=== PATIENT | male | born 1980 | race American Indian/Alaskan Native ===

== ENCOUNTER 2016-08-16 01:55 | Emergency (ER) | payer MEDICAID ==
[~2016-08-16] VITALS: Ht 188 cm; Wt 109.2 kg
[~2016-08-16 01:55] MED LIST: ALBU8.5H5 INH; ASPI-515 PO; GLIM4TAB2 PO; GLYB2.5T2 PO; LISI5TAB7 PO; LORA0.5T PO; METF500T PO; ZOLP10TA PO
[2016-08-16 02:19] LABS: DAU SCREEN DISCLAIMER
[2016-08-16 02:47] LABS: BLOOD UREA NITROGEN 7 mg/dL (7-18)
[2016-08-16 02:51] LABS: ASPARTATE AMINO TRANSFERASE 41 U/L (15-37)
[2016-08-16 02:55] LABS: ACETAMINOPHEN < 2 mcg/mL (10-30)
[2016-08-16] MEDS ORDERED: SODIUM CHLORIDE 0.9% 1,000ML IVBOLUS ONE ×2 (03:30)
[2016-08-16] MEDS ORDERED: INSULIN REGULAR 100 UNITS/ML, 3ML VIAL IVPush ONE (03:30)
[2016-08-16] MEDS ORDERED: INSULIN SINGLE DOSE, ER SQ-INSULIN ONE ×2 (04:08→04:10)
[2016-08-16 14:11] VITALS: BP 127/77
== END 2016-08-16 14:15 | disposition home or self-care (01) ==
LOC: ED 02:22
DX: F32.9 Major depressive disorder, single episode, unspecified (principal); F10.120 Alcohol abuse with intoxication, uncomplicated; J45.909 Unspecified asthma, uncomplicated; E11.65 Type 2 diabetes mellitus with hyperglycemia; E78.5 Hyperlipidemia, unspecified; I10 Essential (primary) hypertension; Z79.4 Long term (current) use of insulin; Z79.899 Other long term (current) drug therapy
CPT/HCPCS: 36415; 80047; 80053; 80307; 80329; 81001; 82962; 85025; 96361; 96374; 99284; J7030; G0480

== ENCOUNTER 2017-03-08 18:12 | Emergency (ER) | payer MEDICAID ==
[~2017-03-08] VITALS: Ht 188 cm; Wt 85.0 kg
[~2017-03-08 18:12] MED LIST changes: +ALBU2.5V11 NEB; +HYDR25CA PO; +METF500T4 PO; +PREG50CA PO
[2017-03-08 18:26] VITALS: BP 136/86
== END 2017-03-08 18:43 | disposition left against medical advice (07) ==
LOC: ED 18:14
DX: F10.129 Alcohol abuse with intoxication, unspecified (principal); Z53.21 Procedure and treatment not carried out due to patient leaving prior to being seen by health care provider

== ENCOUNTER 2017-03-11 17:26 | Emergency (ER) | payer MEDICAID ==
[~2017-03-11] VITALS: Ht 185.4 cm; Wt 115.0 kg
[2017-03-11 17:29] VITALS: BP 138/92
[2017-03-11] MEDS ORDERED: ALPR-475 PO (17:39)
[2017-03-11] MEDS ORDERED: INSU100V8 SQ (17:39)
[2017-03-11] MEDS ORDERED: GLIM2TAB2 PO (17:39)
[2017-03-11 17:48] LABS: HEMATOCRIT 52.6 % (39.2-51.8); HEMOGLOBIN 17.8 g/dL (13.7-18.0); WHITE BLOOD COUNT 4.7 x10^3/uL (3.4-10)
[2017-03-11 18:00] LABS: BLOOD UREA NITROGEN 6 mg/dL (7-18)
[2017-03-11 18:02] LABS: ACETAMINOPHEN < 2 mcg/mL (10-30)
== END 2017-03-11 18:15 | disposition left against medical advice (07) ==
LOC: ED 18:00
DX: F10.220 Alcohol dependence with intoxication, uncomplicated (principal); I10 Essential (primary) hypertension; E11.9 Type 2 diabetes mellitus without complications; Y90.9 Presence of alcohol in blood, level not specified; Z79.899 Other long term (current) drug therapy
CPT/HCPCS: 36415; 80048; 80307; 80329; 82040; 85025; 99284; G0480

== ENCOUNTER 2017-03-26 16:06 | Observation (INO) | payer MEDICAID ==
[~2017-03-26] VITALS: Ht 185.4 cm; Wt 110.0 kg
[~2017-03-26 16:06] MED LIST changes: +ALPR-475 PO; +GLIM2TAB2 PO; +INSU100V8 SQ
[2017-03-26] MEDS ORDERED: SODIUM CHLORIDE 0.9% 1,000 ML IV ONE (16:24)
[2017-03-26] MEDS ORDERED: CHOL500050 PO (16:29)
[2017-03-26] MEDS ORDERED: SODIUM CHLORIDE 0.9% 1,000ML IVBOLUS ONE (16:30)
[2017-03-26 17:02] LABS: HEMATOCRIT 51.9 % (39.2-51.8); HEMOGLOBIN 17.8 g/dL (13.7-18.0); WHITE BLOOD COUNT 5.5 x10^3/uL (3.4-10)
[2017-03-26 17:17] LABS: BLOOD UREA NITROGEN 6 mg/dL (7-18)
[2017-03-26 17:21] LABS: ASPARTATE AMINO TRANSFERASE 62 U/L (15-37)
[2017-03-26 17:28] LABS: ACETAMINOPHEN < 2 mcg/mL (10-30)
[2017-03-26 18:32] LABS: DAU SCREEN DISCLAIMER
[2017-03-26] MEDS ORDERED: LORazepam 2 MG/ML, 1ML ONE (21:22)
[2017-03-26] MEDS ORDERED: LORazepam 2 MG/ML, 1ML IVPush ONE (21:30)
[2017-03-26] MEDS ORDERED: ONDANSETRON ODT 4 MG PO PRN (23:30)
[2017-03-26] MEDS ORDERED: DOCUSATE 100 MG CAPSULE PO PRN (23:30)
[2017-03-26] MEDS ORDERED: ALBUTEROL SULFATE 2.5MG/0.5ML NEB PRN (23:30)
[2017-03-27 00:03] VITALS: BP 114/81
[2017-03-27] MEDS ORDERED: ERGOCALCIFEROL 50,000 UNIT CAPSULE PO SCH (00:06)
[2017-03-27] MEDS: metFORMIN 500 MG TABLET PO SCH ×3 (00:34→20:29)
[2017-03-27] MEDS: INSULIN REGULAR 100 UNITS/ML, 3ML VIAL SQ-INSULIN SCH ×5 (00:37→20:35)
[2017-03-27] MEDS ORDERED: DEXTROSE 4 GM TAB.CHEW PO PRN (02:00)
[2017-03-27] MEDS ORDERED: GLUCAGON 1 MG IM PRN (02:00)
[2017-03-27] MEDS ORDERED: DEXTROSE 50%, 50ML SYRINGE IVPush PRN (02:00)
[2017-03-27 05:40] VITALS: BP 143/82
[2017-03-27] MEDS: LORazepam 1MG TABLET PO PRN ×2 (05:49→17:01)
[2017-03-27 08:00] VITALS: BP 137/88
[2017-03-27] MEDS ORDERED: SODIUM CHLORIDE FLUSH 10ML SYR IVF SCH (09:00)
[2017-03-27] MEDS: PREGABALIN 25 MG CAPSULE PO SCH (10:12)
[2017-03-27] MEDS: GLIMEPIRIDE 1 MG TABLET PO SCH (10:12)
[2017-03-27] MEDS: LISINOPRIL 5 MG TABLET PO SCH (10:13)
[2017-03-27] MEDS: INSULIN DETEMIR 100 UNITS/ML, PEN SQ-INSULIN SCH (12:58)
[2017-03-27 20:49] VITALS: BP 117/77
[2017-03-27 22:56] LABS: HEMATOCRIT 45.4 % (39.2-51.8); HEMOGLOBIN 15.5 g/dL (13.7-18.0); WHITE BLOOD COUNT 7.1 x10^3/uL (3.4-10)
[2017-03-28 06:07] LABS: BLOOD UREA NITROGEN 11 mg/dL (7-18)
[2017-03-28 07:30] VITALS: BP 115/77
[2017-03-28] MEDS: LISINOPRIL 5 MG TABLET PO SCH (08:38)
[2017-03-28] MEDS: metFORMIN 500 MG TABLET PO SCH ×2 (08:39→20:00)
[2017-03-28] MEDS: PREGABALIN 25 MG CAPSULE PO SCH (08:39)
[2017-03-28] MEDS: INSULIN DETEMIR 100 UNITS/ML, PEN SQ-INSULIN SCH (08:41)
[2017-03-28] MEDS: INSULIN REGULAR 100 UNITS/ML, 3ML VIAL SQ-INSULIN SCH ×4 (08:42→20:00)
[2017-03-28] MEDS: GLIMEPIRIDE 1 MG TABLET PO SCH (08:45)
[2017-03-28 16:52] VITALS: BP 113/79
[2017-03-28] MEDS: LORazepam 1MG TABLET PO PRN (16:52)
[2017-03-28 18:28] VITALS: BP 103/66
[2017-03-28 19:37] VITALS: BP 99/63
[2017-03-28] MEDS: ACETAMINOPHEN 325 MG TABLET PO PRN (19:56)
[2017-03-29] MEDS: INSULIN REGULAR 100 UNITS/ML, 3ML VIAL SQ-INSULIN SCH ×4 (07:00→20:16)
[2017-03-29 07:27] VITALS: BP 101/66
[2017-03-29] MEDS: GLIMEPIRIDE 1 MG TABLET PO SCH (07:50)
[2017-03-29] MEDS: LISINOPRIL 5 MG TABLET PO SCH (07:50)
[2017-03-29] MEDS: PREGABALIN 25 MG CAPSULE PO SCH (07:50)
[2017-03-29] MEDS: metFORMIN 500 MG TABLET PO SCH ×2 (07:50→20:15)
[2017-03-29] MEDS: INSULIN DETEMIR 100 UNITS/ML, PEN SQ-INSULIN SCH (07:56)
[2017-03-29] MEDS ORDERED: ERGOCALCIFEROL 50,000 UNIT CAPSULE PO SCH (09:00)
[2017-03-29] MEDS: ACETAMINOPHEN 325 MG TABLET PO PRN (16:11)
[2017-03-29] MEDS: LORazepam 1MG TABLET PO PRN (19:14)
[2017-03-29 19:16] VITALS: BP 120/74
[2017-03-30] MEDS: INSULIN REGULAR 100 UNITS/ML, 3ML VIAL SQ-INSULIN SCH ×3 (08:25→16:34)
[2017-03-30] MEDS: INSULIN DETEMIR 100 UNITS/ML, PEN SQ-INSULIN SCH (08:26)
[2017-03-30] MEDS: LISINOPRIL 5 MG TABLET PO SCH (08:27)
[2017-03-30] MEDS: PREGABALIN 25 MG CAPSULE PO SCH (08:27)
[2017-03-30] MEDS: metFORMIN 500 MG TABLET PO SCH (08:27)
[2017-03-30] MEDS: GLIMEPIRIDE 1 MG TABLET PO SCH (08:27)
[2017-03-30 08:30] VITALS: BP 111/76
== END 2017-03-30 17:19 ==
LOC: ED 19:30 → INTOOBSV 21:22 → EDIP 21:22 → 2N 03-27 00:02
PROVIDERS: ADMIT Surgery; ATTEND Surgery
DX: R45.851 Suicidal ideations (principal); I10 Essential (primary) hypertension; J45.909 Unspecified asthma, uncomplicated; F32.3 Major depressive disorder, single episode, severe with psychotic features; E78.5 Hyperlipidemia, unspecified; F10.229 Alcohol dependence with intoxication, unspecified; F41.1 Generalized anxiety disorder; K70.10 Alcoholic hepatitis without ascites; E11.65 Type 2 diabetes mellitus with hyperglycemia; Z79.4 Long term (current) use of insulin
CPT/HCPCS: 36415; 80048; 80053; 80307; 80329; 82962; 83036; 83735; 85025; 96361; 96372; 96374; 99285; G0378; J1815; J2060; J7030; Q0177; G0479; G0480

== ENCOUNTER 2017-04-24 15:38 | Emergency (ER) | payer MEDICAID ==
[~2017-04-24] VITALS: Ht 185.4 cm; Wt 115.0 kg
[~2017-04-24 15:38] MED LIST changes: +CHOL500050 PO
[2017-04-24 16:28] LABS: BASOPHILS # (AUTO) 0.04 x10^3/uL (0-0.1); BASOPHILS % (AUTO) 1 % (0-1); EOSINOPHILS # (AUTO) 0.06 x10^3/uL (0-0.4); EOSINOPHILS % (AUTO) 1 % (1-7); LYMPHOCYTES # (AUTO) 3.17 x10^3/uL (1-3.4); LYMPHOCYTES % (AUTO) 35 % (22-44); MD NO; MEAN CORPUSCULAR HEMOGLOBIN 30.5 pg (27.5-34.5); MEAN CORPUSCULAR HGB CONC 33.5 g/dL (33.2-36.2); MEAN CORPUSCULAR VOLUME 90.9 fL (81-97); MEAN PLATELET VOLUME 7.9 fL (7.4-10.4); MONOCYTES # (AUTO) 0.49 x10^3/uL (0.2-0.8); MONOCYTES % (AUTO) 5 % (2-9); NEUTROPHILS # (AUTO) 5.33 x10^3/uL (1.8-6.8); NEUTROPHILS % (AUTO) 59 % (42-75); PLATELET COUNT 381 x10^3/uL (130-400); RED BLOOD COUNT 5.59 x10^6/uL (4.38-5.82); RED CELL DISTRIBUTION WIDTH 14.3 % (9.4-14.8)
[2017-04-24 16:36] LABS: ALANINE AMINOTRANSFERASE 47 U/L (12-78); ANION GAP 12 mmol/L (5-15); CALCIUM 8.3 mg/dL (8.5-10.1); CHLORIDE 102 mmol/L (98-107); CREATININE 0.93 mg/dL (0.7-1.3)
[2017-04-24 16:38] LABS: ACETAMINOPHEN < 2 mcg/mL (10-30); ALKALINE PHOSPHATASE 91 U/L (45-117); BILIRUBIN,TOTAL 0.5 mg/dL (0.2-1.0); SALICYLATE LEVEL < 1.7 mg/dL (2.8-20.0); TOTAL PROTEIN 7.8 g/dL (6.4-8.2)
[2017-04-24 16:45] LABS: AMPHETAMINE SCREEN, URINE Negative (Negative); BARBITURATE SCREEN, URINE Negative (Negative); BENZODIAZEPINE SCREEN, URINE Negative (Negative); CANNABINOID SCREEN, URINE Negative (Negative); COCAINE SCREEN, URINE Negative (Negative); METHADONE SCREEN, URINE Negative (Negative); OPIATE SCREEN, URINE Negative (Negative)
[2017-04-24 21:24] VITALS: BP 115/85
== END 2017-04-24 21:58 | disposition home or self-care (01) ==
LOC: ED 16:07
DX: F10.120 Alcohol abuse with intoxication, uncomplicated (principal); J45.909 Unspecified asthma, uncomplicated; E78.5 Hyperlipidemia, unspecified; I10 Essential (primary) hypertension; F32.9 Major depressive disorder, single episode, unspecified; F41.1 Generalized anxiety disorder; E11.65 Type 2 diabetes mellitus with hyperglycemia; Z79.899 Other long term (current) drug therapy
CPT/HCPCS: 36415; 80053; 80307; 80329; 85025; 93005; 99285; G0480

== ENCOUNTER 2018-07-21 18:46 | Emergency (ER) | payer MEDICAID ==
[~2018-07-21] VITALS: Ht 185.4 cm; Wt 110.5 kg
[~2018-07-21 18:46] MED LIST changes: +METF500T17 PO; -METF500T4 PO
[2018-07-21] MEDS ORDERED: SODIUM CHLORIDE FLUSH 10ML SYR IVF ONE (19:00)
[2018-07-21] MEDS ORDERED: SODIUM CHLORIDE 0.9% 1,000ML IVBOLUS ONE (19:00)
--- NOTE | 2018-07-21 19:23 | NUR ---
PT STATES "HE HAS BEEN BINGE DRINKING FOR 2 WEEKS NOW, LAST DRINK WAS 4PM TODAY. STOPPED TAKING MEDICATIONS BECAUSE OF THE DRINKING". CAME IN TODAY BECAUSE HE COULDN'T STOP SHAKING HIS FEET AND HIS FRIEND TOLD HIM HE WAS GOING THRU DT[facility]
[2018-07-21 19:42] LABS: ALANINE AMINOTRANSFERASE 154 U/L (12-78); ALBUMIN 4.5 g/dL (3.4-5.0); ANION GAP 17 mmol/L (5-15); BASOPHILS # (AUTO) 0.02 x10^3/uL (0-0.1); BASOPHILS % (AUTO) 0 % (0-1); CALCIUM 8.7 mg/dL (8.5-10.1); CHLORIDE 93 mmol/L (98-107); CREATININE 1.09 mg/dL (0.7-1.3); EOSINOPHILS # (AUTO) 0.05 x10^3/uL (0-0.4); EOSINOPHILS % (AUTO) 1 % (1-7); LYMPHOCYTES % (AUTO) 33 % (22-44); MD NO; MEAN CORPUSCULAR HEMOGLOBIN 30.7 pg (27.5-34.5); MEAN CORPUSCULAR HGB CONC 34.6 g/dL (33.2-36.2); MEAN CORPUSCULAR VOLUME 88.7 fL (81-97); MEAN PLATELET VOLUME 7.9 fL (7.4-10.4); MONOCYTES # (AUTO) 0.51 x10^3/uL (0.2-0.8); MONOCYTES % (AUTO) 9 % (2-9); NEUTROPHILS # (AUTO) 3.34 x10^3/uL (1.8-6.8); NEUTROPHILS % (AUTO) 57 % (42-75); PLATELET COUNT 159 x10^3/uL (130-400); RED CELL DISTRIBUTION WIDTH 13.1 % (9.4-14.8)
[2018-07-21 19:44] LABS: ALKALINE PHOSPHATASE 75 U/L (45-117); BILIRUBIN,TOTAL 0.9 mg/dL (0.2-1.0); TOTAL PROTEIN 8.5 g/dL (6.4-8.2)
[2018-07-21 20:06] LABS: ACETONE, SERUM Small (20mg/dL) mg/dL (Negative)
--- NOTE | 2018-07-21 20:18 | NUR ---
VSS. PT RESTING, WARM BLANKET GIVEN. 2ND LITER BOLUS INFUSING
[2018-07-21] MEDS ORDERED: LORazepam 2 MG/ML, 1ML ONE (21:07)
--- NOTE | 2018-07-21 21:13 | NUR ---
PT AMBULATED TO RESTROOM. VSS. PHYSICIAN AT BEDSIDE AND UPDATED ON POC
[2018-07-21 21:14] LABS: MICROSCOPIC NOT IND
[2018-07-21 21:22] LABS: CULTURE INDICATED? NO
[2018-07-21] MEDS ORDERED: LORazepam 2 MG/ML, 1ML IVPush ONE (21:30)
[2018-07-21 21:49] VITALS: BP 129/68
== END 2018-07-21 21:51 | disposition home or self-care (01) ==
LOC: ED 20:27
DX: F10.120 Alcohol abuse with intoxication, uncomplicated (principal); Z72.9 Problem related to lifestyle, unspecified; I10 Essential (primary) hypertension; E11.65 Type 2 diabetes mellitus with hyperglycemia; Z87.891 Personal history of nicotine dependence
CPT/HCPCS: 36415; 80053; 80307; 81003; 82010; 82800; 82962; 83690; 85025; 93005; 96361; 96374; 99284; J2060; J7030

== ENCOUNTER 2018-10-14 19:44 | Emergency (ER) | payer MEDICAID ==
[~2018-10-14] VITALS: Ht 188 cm; Wt 120.0 kg
[2018-10-14 20:43] VITALS: BP 116/78
[2018-10-14 21:14] LABS: BASOPHILS # (AUTO) 0.03 x10^3/uL (0-0.1); BASOPHILS % (AUTO) 1 % (0-1); EOSINOPHILS # (AUTO) 0.16 x10^3/uL (0-0.4); EOSINOPHILS % (AUTO) 2 % (1-7); LYMPHOCYTES # (AUTO) 2.74 x10^3/uL (1-3.4); LYMPHOCYTES % (AUTO) 40 % (22-44); MD NO; MEAN CORPUSCULAR HEMOGLOBIN 30.5 pg (27.5-34.5); MEAN CORPUSCULAR HGB CONC 33.3 g/dL (33.2-36.2); MEAN CORPUSCULAR VOLUME 91.6 fL (81-97); MEAN PLATELET VOLUME 7.8 fL (7.4-10.4); MONOCYTES # (AUTO) 0.41 x10^3/uL (0.2-0.8); MONOCYTES % (AUTO) 6 % (2-9); NEUTROPHILS # (AUTO) 3.51 x10^3/uL (1.8-6.8); NEUTROPHILS % (AUTO) 51 % (42-75); PLATELET COUNT 369 x10^3/uL (130-400); RED BLOOD COUNT 5.78 x10^6/uL (4.38-5.82); RED CELL DISTRIBUTION WIDTH 14.7 % (9.4-14.8)
[2018-10-14 21:25] LABS: ALBUMIN 4.5 g/dL (3.4-5.0); ANION GAP 15 mmol/L (5-15); CALCIUM 9.1 mg/dL (8.5-10.1); CHLORIDE 99 mmol/L (98-107)
[2018-10-14] MEDS ORDERED: THIAMINE 100MG TABLET PO ONE (21:30)
[2018-10-14] MEDS ORDERED: LORazepam 1MG TABLET PO ONE (21:30)
[2018-10-14] MEDS ORDERED: ONDANSETRON ODT 4 MG PO ONE (21:30)
--- NOTE | 2018-10-14 21:33 | NUR ---
task rn: soc call intiated
[2018-10-14 21:38] LABS: ALANINE AMINOTRANSFERASE 53 U/L (12-78); ALKALINE PHOSPHATASE 77 U/L (45-117); BILIRUBIN,TOTAL 0.7 mg/dL (0.2-1.0); CREATININE 1.01 mg/dL (0.7-1.3)
[2018-10-14 21:49] LABS: SALICYLATE LEVEL < 1.7 mg/dL (2.8-20.0)
[2018-10-14 22:00] LABS: AMPHETAMINE SCREEN, URINE Negative (Negative); BARBITURATE SCREEN, URINE Negative (Negative); BENZODIAZEPINE SCREEN, URINE Negative (Negative); CANNABINOID SCREEN, URINE Negative (Negative); COCAINE SCREEN, URINE Negative (Negative); METHADONE SCREEN, URINE Negative (Negative); OPIATE SCREEN, URINE Negative (Negative)
== END 2018-10-14 22:52 | disposition home or self-care (01) ==
LOC: ED 21:21
DX: F10.220 Alcohol dependence with intoxication, uncomplicated (principal); F17.200 Nicotine dependence, unspecified, uncomplicated; I10 Essential (primary) hypertension; E11.9 Type 2 diabetes mellitus without complications; J45.909 Unspecified asthma, uncomplicated
CPT/HCPCS: 36415; 80053; 80307; 84443; 85025; 99283

== ENCOUNTER 2018-12-19 19:16 | Emergency (ER) | payer MEDICAID ==
[~2018-12-19] VITALS: Ht 185.4 cm; Wt 118.0 kg
[~2018-12-19 19:16] MED LIST changes: -ALPR-475 PO; +ALPR0.5T7 PO
--- NOTE | 2018-12-19 19:20 | NUR ---
NOT IN LOBBY X 1
--- NOTE | 2018-12-19 19:37 | NUR ---
pt bib [facility] for etoh abuse and withdrawal. last drin at approx 1000 today. pt able to ambulate from [facility] in hallway to [facility] in room 27 with steady gait. pt appears anxious, restless and agitated, but cooperative with monitoring equipment. pt states he has been drinking consistently for 15 days and needs help quitting etoh. pt states hx of etoh hospitalization with hallucinations. denies hallucinations at this time. hx dm2 and has been noncompliant with medications x at least 1 month. fsbg 414 user acceptance tester. pt reports seizure earlier this afternoon, per ems, pt was educated that he likely did not have a seizure d/t no post-ictal state, remembering all events, no incontinence, etc. iv established and 250ml ns and 4mg zofran administered user acceptance tester. pt connected to monitors. st 110s, all other vss on ra. when pt stated he had a seizure today, this rn educated pt on s/s of seizures and that his symptoms did not match those of a seizure. pt got up and stated, "you're calling me a liar. i'm leaving and going to [facility]." piv removed and pt dressed self. pt to ed exit with steady gait and all belongings.
[2019-01-20] MEDS ORDERED: ATOR20TA86 PO (00:16)
[2019-01-22] MEDS ORDERED: THIA100T67 PO (10:14)
[2019-01-22] MEDS ORDERED: FOLI-17 PO (10:14)
[2019-01-22] MEDS ORDERED: INSU100I13 SQ-INSULIN (10:14)
== END 2018-12-19 19:51 | disposition left against medical advice (07) ==
LOC: ED 19:45
DX: F10.129 Alcohol abuse with intoxication, unspecified (principal); I10 Essential (primary) hypertension; E11.9 Type 2 diabetes mellitus without complications; E78.5 Hyperlipidemia, unspecified; J45.909 Unspecified asthma, uncomplicated; F41.1 Generalized anxiety disorder; F32.9 Major depressive disorder, single episode, unspecified; Z72.9 Problem related to lifestyle, unspecified
CPT/HCPCS: 99283

== ENCOUNTER 2019-02-13 14:30 | Emergency (ER) | payer MEDICAID ==
[~2019-02-13] VITALS: Ht 185.4 cm; Wt 117.0 kg
[~2019-02-13 14:30] MED LIST changes: +ATOR20TA86 PO; +FOLI-17 PO; -GLIM2TAB2 PO; +GLIM2TAB3 PO; -GLIM4TAB2 PO; +GLIM4TAB4 PO; +INSU100I13 SQ-INSULIN; +THIA100T67 PO
[2019-02-13] MEDS ORDERED: SODIUM CHLORIDE 0.9% 1,000 ML IV ONE (14:36)
[2019-02-13 14:43] VITALS: BP 121/78
[2019-02-13 14:59] LABS: BASOPHILS # (AUTO) 0.05 x10^3/uL (0-0.1); BASOPHILS % (AUTO) 1 % (0-1); EOSINOPHILS # (AUTO) 0.08 x10^3/uL (0-0.4); EOSINOPHILS % (AUTO) 1 % (1-7); LYMPHOCYTES # (AUTO) 2.68 x10^3/uL (1-3.4); LYMPHOCYTES % (AUTO) 31 % (22-44); MD NO; MEAN CORPUSCULAR HEMOGLOBIN 30.2 pg (27.5-34.5); MEAN CORPUSCULAR HGB CONC 33.1 g/dL (33.2-36.2); MEAN CORPUSCULAR VOLUME 91.2 fL (81-97); MEAN PLATELET VOLUME 7.7 fL (7.4-10.4); MONOCYTES # (AUTO) 0.31 x10^3/uL (0.2-0.8); MONOCYTES % (AUTO) 4 % (2-9); NEUTROPHILS # (AUTO) 5.49 x10^3/uL (1.8-6.8); NEUTROPHILS % (AUTO) 64 % (42-75); PLATELET COUNT 407 x10^3/uL (130-400); RED BLOOD COUNT 5.82 x10^6/uL (4.38-5.82); RED CELL DISTRIBUTION WIDTH 13.8 % (9.4-14.8)
--- NOTE | 2019-02-13 14:59 | NUR ---
BIB [facility] FOR HYPERGLYCEMIA. BS UPON ARRIVAL 483, DECREASED TO 386 AFTER 500ML NS. +ETOH. LAST DRINK 1400 TODAY. FAMILY STATES THIS IS RECURRENT AT BEGINNING OF EVERY MONTH. 349 BS UPON ARRIVAL. PT CONNECTED TO MONITORING. CALL LIGHT IN REACH.
[2019-02-13] MEDS ORDERED: SODIUM CHLORIDE 0.9% 1,000ML IVBOLUS ONE (15:00)
[2019-02-13] MEDS ORDERED: THIAMINE 100 MG in SODIUM CHLORIDE 0.9% 50 ML IVPB ONE (15:00)
[2019-02-13] MEDS ORDERED: SODIUM CHLORIDE FLUSH 10ML SYR IVF ONE (15:00)
[2019-02-13 15:02] LABS: O2 FLOW RA L/min
--- NOTE | 2019-02-13 15:02 | NUR ---
UA COLLECTED AND TAKEN TO LAB.
[2019-02-13 15:12] LABS: ALANINE AMINOTRANSFERASE 51 U/L (12-78); ALBUMIN 4.4 g/dL (3.4-5.0); ANION GAP 12 mmol/L (5-15); CHLORIDE 97 mmol/L (98-107); CREATININE 1.05 mg/dL (0.7-1.3)
[2019-02-13 15:16] LABS: ALKALINE PHOSPHATASE 82 U/L (45-117); BILIRUBIN,TOTAL 0.5 mg/dL (0.2-1.0); TOTAL PROTEIN 8.6 g/dL (6.4-8.2)
[2019-02-13 15:29] LABS: MICROSCOPIC NOT IND
[2019-02-13 15:36] LABS: CULTURE INDICATED? NO
--- NOTE | 2019-02-13 15:41 | NUR ---
PT TO AMA AT THIS TIME. PT INFORMED THAT HE IS TO NOT DRIVE HOME. PT GIVEN CAB VOUCHER FOR SAFE DC HOME. PT AGREED TO THIS.
[2019-02-13 15:50] LABS: ACETONE, SERUM Negative (Negative)
== END 2019-02-13 15:44 | disposition left against medical advice (07) ==
LOC: ED 15:00
DX: E10.65 Type 1 diabetes mellitus with hyperglycemia (principal); I10 Essential (primary) hypertension; J45.909 Unspecified asthma, uncomplicated
CPT/HCPCS: 80053; 80307; 81003; 82010; 82803; 82962; 83690; 85025; 93005; 99284

== ENCOUNTER 2019-03-15 22:08 | Emergency (ER) | payer MEDICAID ==
[~2019-03-15] VITALS: Ht 185.4 cm; Wt 116.5 kg
[~2019-03-15 22:08] MED LIST changes: +ALBU8.5H8 INH; +ATOR-2 PO; +HYDR-826 PO; +INSU100I13 SQ; +METF10007 PO
[2019-03-15 22:19] VITALS: BP 132/81
--- NOTE | 2019-03-16 00:20 | NUR ---
PRINCEX1
--- NOTE | 2019-03-16 00:34 | NUR ---
NILX2
--- NOTE | 2019-03-16 00:38 | NUR ---
NILX3 LWBS
== END 2019-03-16 00:40 | disposition left against medical advice (07) ==
LOC: ED 03-16 00:34
DX: R00.2 Palpitations (principal); R07.9 Chest pain, unspecified; R06.02 Shortness of breath; Z53.21 Procedure and treatment not carried out due to patient leaving prior to being seen by health care provider
CPT/HCPCS: 82962; 93005

== ENCOUNTER 2019-03-21 18:49 | Inpatient (IN) | payer MEDICAID ==
[~2019-03-21] VITALS: Ht 185.4 cm; Wt 119.7 kg
--- NOTE | 2019-03-21 19:20 | NUR ---
pt to ED from home. has been drinking x15 days, vodka. fell in shower today, hit head. "I think I passed out". no bumps noted. Visual and auditory hallucinations started after that. Pt has hx ETOH abuse, withdrawals, seizures. last drink at 1800. Also has hx DKA. Ketone breath. PEARRL. apprioriate. GCS 15. sinus tach 100s. c/o chest pain/pressure, intermittent. 5/10 at moment. c/o nausea. hasn't eaten x3 days. vomiting multiple times. hypertensive. noncompliant with meds, has not taken since mar 07. call pérez in reach, awaiting md crews.
[2019-03-21] MEDS ORDERED: SODIUM CHLORIDE 0.9% 1,000ML IVBOLUS ONE (20:00)
[2019-03-21] MEDS ORDERED: FAMOTIDINE 20 MG/2 ML IV ONE (20:00)
[2019-03-21] MEDS ORDERED: ONDANSETRON 2MG/ML, 2ML ONE (20:00)
[2019-03-21] MEDS ORDERED: SODIUM CHLORIDE FLUSH 10ML SYR IVF ONE (20:00)
[2019-03-21] MEDS ORDERED: FAMOTIDINE 20 MG/2 ML ONE (20:00)
[2019-03-21] MEDS ORDERED: ONDANSETRON 2MG/ML, 2ML IVPush ONE (20:00)
--- NOTE | 2019-03-21 20:23 | NUR ---
piv est, labs drawn and sent, meds/ivf per mar. pt resting. us done. call pérez in reach. as
[2019-03-21 20:46] LABS: PH, VENOUS 7.413 pH (7.320-7.420)
[2019-03-21 20:47] LABS: O2 FLOW RA L/min
[2019-03-21 20:50] LABS: BASOPHILS # (AUTO) 0.02 x10^3/uL (0-0.1); BASOPHILS % (AUTO) 0 % (0-1); EOSINOPHILS # (AUTO) 0.14 x10^3/uL (0-0.4); EOSINOPHILS % (AUTO) 2 % (1-7); LYMPHOCYTES # (AUTO) 1.63 x10^3/uL (1-3.4); LYMPHOCYTES % (AUTO) 29 % (22-44); MD NO; MEAN CORPUSCULAR HEMOGLOBIN 30.8 pg (27.5-34.5); MEAN CORPUSCULAR VOLUME 93.4 fL (81-97); MEAN PLATELET VOLUME 7.8 fL (7.4-10.4); MONOCYTES # (AUTO) 0.29 x10^3/uL (0.2-0.8); MONOCYTES % (AUTO) 5 % (2-9); NEUTROPHILS # (AUTO) 3.59 x10^3/uL (1.8-6.8); NEUTROPHILS % (AUTO) 63 % (42-75); PLATELET COUNT 247 x10^3/uL (130-400); RED BLOOD COUNT 5.18 x10^6/uL (4.38-5.82); RED CELL DISTRIBUTION WIDTH 15.1 % (9.4-14.8)
[2019-03-21 20:59] LABS: ALBUMIN 4.2 g/dL (3.4-5.0); ANION GAP 16 mmol/L (5-15); CALCIUM 9.3 mg/dL (8.5-10.1); CHLORIDE 101 mmol/L (98-107)
[2019-03-21 21:05] LABS: ALANINE AMINOTRANSFERASE 111 U/L (12-78); ALKALINE PHOSPHATASE 66 U/L (45-117); BILIRUBIN,TOTAL 1.3 mg/dL (0.2-1.0); CREATININE 0.91 mg/dL (0.7-1.3); TOTAL PROTEIN 8.2 g/dL (6.4-8.2); TROPONIN I < 0.015 ng/mL (0.000-0.045)
[2019-03-21 21:09] LABS: ACETONE, SERUM Small (20mg/dL) mg/dL (Negative)
--- NOTE | 2019-03-21 21:13 | NUR ---
all results back chart up for recheck
[2019-03-21] MEDS ORDERED: LORazepam 2 MG/ML, 1ML ONE (21:44)
--- NOTE | 2019-03-21 21:52 | NUR ---
pt to be admitted. 1 mg ativan per mar, pt starting to feel shaky. vss, tachy 100s. calm, cooperative. call pérez in reach.
[2019-03-21] MEDS ORDERED: POLYETHYLENE GLYCOL 17 GM PACKET PO PRN (22:00)
[2019-03-21] MEDS ORDERED: LORazepam 2 MG/ML, 1ML IVPush ONE (22:00)
[2019-03-21] MEDS ORDERED: BISACODYL 10 MG SUPP PR PRN (22:00)
[2019-03-21] MEDS ORDERED: INSULIN REGULAR 100 UNITS/ML, 3ML VIAL SQ-INSULIN ONE ×2 (22:00→23:00)
[2019-03-21] MEDS ORDERED: LORazepam 2 MG/ML, 1ML IVPush PRN (22:30)
[2019-03-21 22:40] VITALS: BP 130/79
[2019-03-21] MEDS: THIAMINE 100MG TABLET PO SCH (23:14)
[2019-03-21] MEDS: SODIUM CHLORIDE 0.9% 1,000 ML IV SCH (23:15)
[2019-03-22] MEDS: LORazepam 2 MG/ML, 1ML IVPush PRN ×2 (00:39→06:31)
[2019-03-22 00:43] VITALS: BP 130/95
[2019-03-22] MEDS: SODIUM CHLORIDE 0.9% 1,000 ML IV SCH ×3 (06:25→22:27)
[2019-03-22] MEDS: ONDANSETRON ODT 4 MG PO PRN ×2 (06:31→16:34)
[2019-03-22 06:37] LABS: BASOPHILS # (AUTO) 0.02 x10^3/uL (0-0.1); MD NO; MEAN PLATELET VOLUME 7.9 fL (7.4-10.4); RED BLOOD COUNT 4.85 x10^6/uL (4.38-5.82); RED CELL DISTRIBUTION WIDTH 15.6 % (9.4-14.8)
[2019-03-22 06:46] LABS: ALBUMIN 3.7 g/dL (3.4-5.0); CHLORIDE 103 mmol/L (98-107)
[2019-03-22 06:49] LABS: ALANINE AMINOTRANSFERASE 96 U/L (12-78); ALKALINE PHOSPHATASE 56 U/L (45-117); ANION GAP 13 mmol/L (5-15); BILIRUBIN,TOTAL 1.4 mg/dL (0.2-1.0); CALCIUM 8.2 mg/dL (8.5-10.1); CREATININE 0.79 mg/dL (0.7-1.3); TOTAL PROTEIN 7.2 g/dL (6.4-8.2)
[2019-03-22 06:59] VITALS: BP 131/86
[2019-03-22 07:46] LABS: BASOPHILS % (AUTO) 0 % (0-1); EOSINOPHILS # (AUTO) 0.11 x10^3/uL (0-0.4); EOSINOPHILS % (AUTO) 2 % (1-7); LYMPHOCYTES # (AUTO) 1.53 x10^3/uL (1-3.4); LYMPHOCYTES % (AUTO) 25 % (22-44); MEAN CORPUSCULAR HEMOGLOBIN 30.9 pg (27.5-34.5); MEAN CORPUSCULAR HGB CONC 33.6 g/dL (33.2-36.2); MEAN CORPUSCULAR VOLUME 91.8 fL (81-97); MONOCYTES # (AUTO) 0.45 x10^3/uL (0.2-0.8); MONOCYTES % (AUTO) 7 % (2-9); NEUTROPHILS # (AUTO) 4.01 x10^3/uL (1.8-6.8); NEUTROPHILS % (AUTO) 66 % (42-75); PLATELET COUNT 221 x10^3/uL (130-400)
[2019-03-22] MEDS ORDERED: ATORVASTATIN 80 MG TABLET PO SCH ×2 (09:00→21:00)
[2019-03-22] MEDS: SENNA/DOCUSATE TABLET PO SCH (09:00)
[2019-03-22] MEDS ORDERED: THIAMINE 100MG TABLET PO SCH (09:00)
[2019-03-22] MEDS ORDERED: LORazepam 2 MG/ML, 1ML IV PRN ×4 (09:00)
[2019-03-22] MEDS: INSULIN LISPRO 100 UNITS/ML, PEN SQ-INSULIN SCH ×4 (09:20→22:27)
[2019-03-22] MEDS: metFORMIN 500 MG TABLET PO SCH ×2 (09:23→22:26)
[2019-03-22] MEDS: PREGABALIN 150 MG CAPSULE PO SCH (09:23)
[2019-03-22] MEDS: FOLIC ACID 1 MG TABLET PO SCH (09:23)
[2019-03-22] MEDS: THIAMINE 100MG TABLET PO SCH ×2 (09:24→22:26)
[2019-03-22 12:10] VITALS: BP 127/81
[2019-03-22] MEDS ORDERED: ENOXAPARIN 40 MG/0.4 ML SQ SCH (15:00)
[2019-03-22 18:37] VITALS: BP 123/76
[2019-03-22] MEDS ORDERED: INSULIN GLARGINE 100 UNITS/ML, PEN SQ-INSULIN SCH (21:00)
[2019-03-23 00:43] VITALS: BP 101/66
[2019-03-23 05:34] LABS: ALBUMIN 3.2 g/dL (3.4-5.0); ANION GAP 4 mmol/L (5-15); CALCIUM 7.7 mg/dL (8.5-10.1); CHLORIDE 107 mmol/L (98-107)
[2019-03-23 05:37] LABS: ALANINE AMINOTRANSFERASE 75 U/L (12-78); ALKALINE PHOSPHATASE 51 U/L (45-117); BILIRUBIN,TOTAL 1.3 mg/dL (0.2-1.0); CREATININE 0.78 mg/dL (0.7-1.3); TOTAL PROTEIN 6.3 g/dL (6.4-8.2)
[2019-03-23 06:08] LABS: BASOPHILS # (AUTO) 0.02 x10^3/uL (0-0.1); BASOPHILS % (AUTO) 0 % (0-1); EOSINOPHILS # (AUTO) 0.29 x10^3/uL (0-0.4); EOSINOPHILS % (AUTO) 4 % (1-7); LYMPHOCYTES # (AUTO) 1.47 x10^3/uL (1-3.4); LYMPHOCYTES % (AUTO) 22 % (22-44); MD NO; MEAN CORPUSCULAR HEMOGLOBIN 31.2 pg (27.5-34.5); MEAN CORPUSCULAR HGB CONC 33.4 g/dL (33.2-36.2); MEAN CORPUSCULAR VOLUME 93.5 fL (81-97); MEAN PLATELET VOLUME 7.9 fL (7.4-10.4); MONOCYTES # (AUTO) 0.42 x10^3/uL (0.2-0.8); MONOCYTES % (AUTO) 6 % (2-9); NEUTROPHILS # (AUTO) 4.55 x10^3/uL (1.8-6.8); NEUTROPHILS % (AUTO) 68 % (42-75); PLATELET COUNT 174 x10^3/uL (130-400); RED CELL DISTRIBUTION WIDTH 15.6 % (9.4-14.8)
[2019-03-23] MEDS: INSULIN LISPRO 100 UNITS/ML, PEN SQ-INSULIN SCH ×2 (07:00→12:18)
[2019-03-23 07:09] VITALS: BP 114/72
[2019-03-23] MEDS: SODIUM CHLORIDE 0.9% 1,000 ML IV SCH (07:41)
[2019-03-23] MEDS ORDERED: POTASSIUM CHLORIDE 20 MEQ TAB.ER.PRT PO SCH (08:00)
[2019-03-23] MEDS: SENNA/DOCUSATE TABLET PO SCH (09:10)
[2019-03-23] MEDS: THIAMINE 100MG TABLET PO SCH (09:10)
[2019-03-23] MEDS: metFORMIN 500 MG TABLET PO SCH (09:10)
[2019-03-23] MEDS: PREGABALIN 150 MG CAPSULE PO SCH (09:10)
[2019-03-23] MEDS: FOLIC ACID 1 MG TABLET PO SCH (09:10)
[2019-03-23 13:22] VITALS: BP 114/74
== END 2019-03-23 16:15 | disposition home or self-care (01) | DRG 422 ==
LOC: ED 21:55 → EDIP 22:00 → 4EST 22:46 → DCLOUNGE 03-23 16:00
PROVIDERS: ADMIT Internal Medicine; ATTEND Hospitalist
DX: E87.2 Acidosis (principal); E86.0 Dehydration; E11.42 Type 2 diabetes mellitus with diabetic polyneuropathy; K70.10 Alcoholic hepatitis without ascites; F10.229 Alcohol dependence with intoxication, unspecified; E11.65 Type 2 diabetes mellitus with hyperglycemia; E78.5 Hyperlipidemia, unspecified; G31.9 Degenerative disease of nervous system, unspecified; I10 Essential (primary) hypertension; J45.909 Unspecified asthma, uncomplicated; K76.0 Fatty (change of) liver, not elsewhere classified; Z91.14 Patient's other noncompliance with medication regimen; Z79.4 Long term (current) use of insulin; R00.0 Tachycardia, unspecified; F10.239 Alcohol dependence with withdrawal, unspecified; W18.2XXA Fall in (into) shower or empty bathtub, initial encounter; Y92.041 Bathroom in boarding-house as the place of occurrence of the external cause; Y99.8 Other external cause status; Y93.E1 Activity, personal bathing and showering
CPT/HCPCS: 36415; 70450; 72125; 76700; 80053; 80307; 82010; 82803; 82962; 83690; 84484; 85025; 93005; 96361; 96374; 96375; G0378; J1650; J1815; J2405; Q0162; J2060; J3490; J7030; Q0177

== ENCOUNTER 2019-04-13 03:36 | Emergency (ER) | payer MEDICAID ==
[~2019-04-13] VITALS: Ht 185.4 cm; Wt 115.1 kg
[2019-04-13 03:55] VITALS: BP 115/77
--- NOTE | 2019-04-13 03:55 | NUR ---
Pt presents to ed c/o "i feel my heart go boom boom in my chest"x8 days. Pt asked why delay in care. "no reason". Hx of dm. Denies any relevant cardiax hx. All monitoring applied. Vss. Call light wtihin reach. Pt mildly tremulous in room. States drinks 2 1/5ths of vodka per day. Last drink 0300 this am.
[2019-04-13 04:30] LABS: BASOPHILS # (AUTO) 0.02 x10^3/uL (0-0.1); BASOPHILS % (AUTO) 0 % (0-1); EOSINOPHILS # (AUTO) 0.17 x10^3/uL (0-0.4); EOSINOPHILS % (AUTO) 3 % (1-7); LYMPHOCYTES # (AUTO) 2.47 x10^3/uL (1-3.4); LYMPHOCYTES % (AUTO) 49 % (22-44); MD NO; MEAN CORPUSCULAR HEMOGLOBIN 30.5 pg (27.5-34.5); MEAN CORPUSCULAR HGB CONC 33.3 g/dL (33.2-36.2); MEAN CORPUSCULAR VOLUME 91.7 fL (81-97); MEAN PLATELET VOLUME 7.4 fL (7.4-10.4); MONOCYTES # (AUTO) 0.25 x10^3/uL (0.2-0.8); MONOCYTES % (AUTO) 5 % (2-9); NEUTROPHILS # (AUTO) 2.12 x10^3/uL (1.8-6.8); NEUTROPHILS % (AUTO) 42 % (42-75); PLATELET COUNT 341 x10^3/uL (130-400)
[2019-04-13 04:41] LABS: ALANINE AMINOTRANSFERASE 223 U/L (12-78); ALBUMIN 3.7 g/dL (3.4-5.0); ANION GAP 9 mmol/L (5-15); CALCIUM 8.7 mg/dL (8.5-10.1); CHLORIDE 104 mmol/L (98-107)
[2019-04-13 04:45] LABS: ALKALINE PHOSPHATASE 83 U/L (45-117); BILIRUBIN,TOTAL 0.3 mg/dL (0.2-1.0); TOTAL PROTEIN 7.5 g/dL (6.4-8.2); TROPONIN I < 0.015 ng/mL (0.000-0.045)
--- NOTE | 2019-04-13 04:48 | NUR ---
This rn to check on pt. Pt not in room and all monitoring/gown on bed. Pt presumed to ama.
== END 2019-04-13 05:06 | disposition left against medical advice (07) ==
LOC: ED 04:39
DX: R07.89 Other chest pain (principal); F10.120 Alcohol abuse with intoxication, uncomplicated; J45.909 Unspecified asthma, uncomplicated; E11.9 Type 2 diabetes mellitus without complications; Z72.9 Problem related to lifestyle, unspecified; Y90.9 Presence of alcohol in blood, level not specified
CPT/HCPCS: 36415; 71045; 80053; 80307; 84484; 85025; 93005; 99284

== ENCOUNTER 2019-04-20 10:10 | Emergency (ER) | payer MEDICAID ==
[~2019-04-20] VITALS: Ht 185.4 cm; Wt 116.3 kg
--- NOTE | 2019-04-20 11:07 | NUR ---
ENERGY RISK MANAGEMENT ANALYST: PT TO ROOM FROM FAVIOLA NEVES
--- NOTE | 2019-04-20 11:24 | NUR ---
PT WITH LONG HISTORY 6 YRS OF DRINKING 2 PINTS OF HARD ALCOHOL A DAY. LAST DRINK THIS MORNING, PT RPTS HE FELL UNK LOC C/O RIGHT SIDE HEAD PAIN AND RIGHT KNEE PAIN. PT ON MONITOR VSS, HAD TREMMORS NOTED. DR BOWERS AT BEDSIDE. PT ASSESSMENT POC DISCUSSED.
--- NOTE | 2019-04-20 11:29 | NUR ---
CALL LIGHT W/I REACH, BLANKET PROVIDED.
--- NOTE | 2019-04-20 11:54 | NUR ---
RECEIVED REPORT FROM JOHN LAKHANI. ASSUMING CARE AT THIS TIME.
[2019-04-20 11:56] LABS: BASOPHILS # (AUTO) 0.02 x10^3/uL (0-0.1); BASOPHILS % (AUTO) 0 % (0-1); EOSINOPHILS # (AUTO) 0.12 x10^3/uL (0-0.4); EOSINOPHILS % (AUTO) 2 % (1-7); LYMPHOCYTES # (AUTO) 1.67 x10^3/uL (1-3.4); LYMPHOCYTES % (AUTO) 32 % (22-44); MD NO; MEAN CORPUSCULAR HEMOGLOBIN 31.2 pg (27.5-34.5); MEAN CORPUSCULAR HGB CONC 33.9 g/dL (33.2-36.2); MEAN PLATELET VOLUME 7.1 fL (7.4-10.4); MONOCYTES # (AUTO) 0.44 x10^3/uL (0.2-0.8); MONOCYTES % (AUTO) 9 % (2-9); NEUTROPHILS # (AUTO) 2.96 x10^3/uL (1.8-6.8); NEUTROPHILS % (AUTO) 57 % (42-75); PLATELET COUNT 190 x10^3/uL (130-400); RED BLOOD COUNT 4.85 x10^6/uL (4.38-5.82); RED CELL DISTRIBUTION WIDTH 15.7 % (9.4-14.8)
--- NOTE | 2019-04-20 12:02 | NUR ---
UA COLLECTED AND SENT TO LAB.
[2019-04-20 12:03] LABS: ALANINE AMINOTRANSFERASE 106 U/L (12-78); ALBUMIN 3.8 g/dL (3.4-5.0); ANION GAP 13 mmol/L (5-15); CALCIUM 8.7 mg/dL (8.5-10.1); CHLORIDE 100 mmol/L (98-107); CREATININE 0.78 mg/dL (0.7-1.3)
[2019-04-20 12:05] LABS: ALKALINE PHOSPHATASE 70 U/L (45-117); BILIRUBIN,TOTAL 0.6 mg/dL (0.2-1.0); TOTAL PROTEIN 7.5 g/dL (6.4-8.2)
[2019-04-20 12:13] LABS: MICROSCOPIC NOT IND
[2019-04-20 12:16] LABS: CULTURE INDICATED? NO
--- NOTE | 2019-04-20 12:19 | NUR ---
PT BACK FROM CT.
[2019-04-20 12:26] VITALS: BP 127/67
== END 2019-04-20 12:53 | disposition home or self-care (01) ==
LOC: ED 12:48
DX: F10.239 Alcohol dependence with withdrawal, unspecified (principal); Y90.9 Presence of alcohol in blood, level not specified; E11.65 Type 2 diabetes mellitus with hyperglycemia; I10 Essential (primary) hypertension; J45.909 Unspecified asthma, uncomplicated
CPT/HCPCS: 36415; 70450; 80053; 81003; 83690; 85025; 99284

== ENCOUNTER 2019-09-15 23:09 | Emergency (ER) | payer MEDICAID ==
[~2019-09-15] VITALS: Ht 185.4 cm; Wt 112.2 kg
[~2019-09-15 23:09] MED LIST changes: -GLIM2TAB3 PO; +GLIM2TAB7 PO; -GLIM4TAB4 PO; +GLIM4TAB8 PO
[2019-09-15 23:11] VITALS: BP 155/98
--- NOTE | 2019-09-15 23:11 | NUR ---
TRIAGE NURSE CALLS FOR SECURITY AND ASSISTANCE PT BECOMING AGGRESSIVE AND VERBALLY ABUSIVE WITH STAFF IN TIRAGE, REFUSING EKG AND CHECK OF BLOOD SUGAR, SECURITY TO ROOM, PT STATES THAT HE WANTS TO LEAVE AND NOT BE SEEN AND THAT HE HOPES WE ALL . TAKEN TO LOBBY WITH SECURITY WHO REMOVE MULTIPLE WEAPONS FROM PT AND TAKE FOR SAFE KEEPING. PT YELLS THAT HE HAS THE CURE FOR COVID AND THAT WE CAN ALL AND GO TO HELL.
--- NOTE | 2019-09-15 23:42 | NUR ---
LOBBY STAFF REPORTS THAT PT HAS WALKED OUT THE FRONT DOOR WITH STEADY GAIT.
== END 2019-09-15 23:51 | disposition left against medical advice (07) ==
LOC: ED 23:50
DX: R00.0 Tachycardia, unspecified (principal); Z53.21 Procedure and treatment not carried out due to patient leaving prior to being seen by health care provider

== ENCOUNTER 2019-10-10 22:09 | Emergency (ER) | payer MEDICAID ==
[~2019-10-10] VITALS: Ht 185.4 cm; Wt 106.3 kg
[2019-10-10 22:14] VITALS: BP 138/96
--- NOTE | 2019-10-10 22:29 | NUR ---
SEIZURE PADS PLACED ON STRETCHER, SUCTION SET UP AT BEDSIDE FOR PRECAUTION.
[2019-10-10] MEDS ORDERED: ONDANSETRON ODT 4 MG ONE (23:10)
--- NOTE | 2019-10-10 23:25 | NUR ---
PATIENT AMBULATED TO BATHROOM AND BACK. PATIENT WAS COMPLAINING OF SOME NAUSEA, PROVIDER NOTIFIED, ZOFRAN TO BE GIVEN.
== END 2019-10-11 00:39 | disposition home or self-care (01) ==
LOC: ED 23:57 → MERGE 23:57 → ED 10-11 00:39
DX: F10.120 Alcohol abuse with intoxication, uncomplicated (principal); R00.0 Tachycardia, unspecified; E11.9 Type 2 diabetes mellitus without complications; J45.909 Unspecified asthma, uncomplicated; I10 Essential (primary) hypertension; Z91.14 Patient's other noncompliance with medication regimen; Z72.9 Problem related to lifestyle, unspecified; Y90.9 Presence of alcohol in blood, level not specified
CPT/HCPCS: 93005; 99283

== ENCOUNTER 2019-10-14 00:34 | Emergency (ER) | payer MEDICAID ==
[~2019-10-14] VITALS: Ht 185.4 cm; Wt 110.0 kg
[2019-10-14 00:35] VITALS: BP 129/83
== END 2019-10-14 00:41 ==
LOC: EDBD 00:34 → MERGE 00:38 → ED 00:38
DX: F10.129 Alcohol abuse with intoxication, unspecified (principal); R44.3 Hallucinations, unspecified; Z53.21 Procedure and treatment not carried out due to patient leaving prior to being seen by health care provider; Y90.9 Presence of alcohol in blood, level not specified

== ENCOUNTER 2019-10-14 00:39 | Emergency (ER) | payer MEDICAID ==
[~2019-10-14] VITALS: Ht 185.4 cm; Wt 110.0 kg
[2019-10-14 00:47] VITALS: BP 129/83
--- NOTE | 2019-10-14 01:03 | NUR ---
PT AMBULATE OUT BACK DOOR WITH STEADY GAIT, ENCOURAGE TO STAY, REFUSE AT THIS TIME. HAD BEEN TALKING ON THE PHONE WITH FAMILY
== END 2019-10-14 01:16 | disposition home or self-care (01) ==
LOC: ED 01:00
DX: F10.129 Alcohol abuse with intoxication, unspecified (principal); R44.3 Hallucinations, unspecified; Z53.21 Procedure and treatment not carried out due to patient leaving prior to being seen by health care provider; Y90.9 Presence of alcohol in blood, level not specified
CPT/HCPCS: 82962

== ENCOUNTER 2019-10-14 02:50 | Emergency (ER) | payer MEDICAID ==
[~2019-10-14] VITALS: Ht 185.4 cm; Wt 113.0 kg
[2019-10-14 02:52] VITALS: BP 126/89
== END 2019-10-14 03:41 ==
LOC: ED 03:40
DX: F10.129 Alcohol abuse with intoxication, unspecified (principal); Z53.21 Procedure and treatment not carried out due to patient leaving prior to being seen by health care provider; Y90.9 Presence of alcohol in blood, level not specified

== ENCOUNTER 2019-11-15 01:53 | Emergency (ER) | payer MEDICAID ==
[~2019-11-15] VITALS: Ht 185.4 cm; Wt 109.1 kg
[2019-11-15 01:56] VITALS: BP 124/83
--- NOTE | 2019-11-15 02:00 | NUR ---
CRYOGENIC TRANSPORT DRIVER: EKG DONE IN TRIAGE AND PRESENTED TO ERMD.
--- NOTE | 2019-11-15 02:31 | NUR ---
pt resting in [facility]. this rn attached vs monitors, and pt immediately pulled them off and walked out of the hospital without being seen by a provided. unable to perform physical assessment or proper departing of pt due to pt leaving facility.
== END 2019-11-15 02:34 | disposition left against medical advice (07) ==
LOC: ED 02:29
DX: R56.9 Unspecified convulsions (principal); Z53.21 Procedure and treatment not carried out due to patient leaving prior to being seen by health care provider
CPT/HCPCS: 93005

== ENCOUNTER 2019-12-25 20:06 | Inpatient (IN) | payer MEDICAID ==
[~2019-12-25] VITALS: Ht 185.4 cm; Wt 114.7 kg
--- NOTE | 2019-12-25 20:18 | NUR ---
triage note: EKG done in triage
[2019-12-25] MEDS ORDERED: ONDANSETRON 2MG/ML, 2ML ONE (20:43)
[2019-12-25] MEDS ORDERED: LORazepam 2 MG/ML, 1ML ONE ×2 (20:43→22:06)
--- NOTE | 2019-12-25 20:56 | NUR ---
ASSUMED CARE OF PATIENT. PATIENT REPORTS STOPPED DRINKING TODAY AT NOON. PT HAS HAD N/V. NO ACUTE DISTRESS NOTED. CIGAR PACKING EXAMINER ON. NSR NOTED. CALL LIGHT IN PLACE. WILL CONTINUE TO MONITOR.
[2019-12-25] MEDS ORDERED: ONDANSETRON 2MG/ML, 2ML IVPush ONE (21:00)
[2019-12-25] MEDS ORDERED: MAGNESIUM SULFATE 1 GM, THIAMINE 100 MG, FOLIC ACID 1 MG, MVI ADULT 10 ML in SODIUM CHL... IV ONE (21:00)
[2019-12-25] MEDS ORDERED: SODIUM CHLORIDE 0.9% 1,000ML IVBOLUS ONE (21:00)
[2019-12-25] MEDS ORDERED: SODIUM CHLORIDE FLUSH 10ML SYR IVF ONE (21:00)
[2019-12-25] MEDS ORDERED: LORazepam 2 MG/ML, 1ML IVPush ONE ×2 (21:00→22:00)
[2019-12-25 21:06] LABS: BASOPHILS # (AUTO) 0.01 x10^3/uL (0-0.1); BASOPHILS % (AUTO) 0 % (0-1); EOSINOPHILS # (AUTO) 0.05 x10^3/uL (0-0.4); EOSINOPHILS % (AUTO) 1 % (1-7); LYMPHOCYTES # (AUTO) 1.01 x10^3/uL (1-3.4); LYMPHOCYTES % (AUTO) 19 % (22-44); MD NO; MEAN CORPUSCULAR HEMOGLOBIN 31.4 pg (27.5-34.5); MEAN CORPUSCULAR HGB CONC 33.9 g/dL (33.2-36.2); MEAN CORPUSCULAR VOLUME 92.7 fL (81-97); MEAN PLATELET VOLUME 7.4 fL (7.4-10.4); MONOCYTES # (AUTO) 0.32 x10^3/uL (0.2-0.8); MONOCYTES % (AUTO) 6 % (2-9); NEUTROPHILS # (AUTO) 4.04 x10^3/uL (1.8-6.8); NEUTROPHILS % (AUTO) 74 % (42-75); PLATELET COUNT 208 x10^3/uL (130-400); RED CELL DISTRIBUTION WIDTH 15.1 % (9.4-14.8)
--- NOTE | 2019-12-25 21:18 | NUR ---
PT WENT TO CT
[2019-12-25 21:19] LABS: ALBUMIN 4.2 g/dL (3.4-5.0); ANION GAP 16 mmol/L (5-15); CHLORIDE 98 mmol/L (98-107)
[2019-12-25 21:23] LABS: ALANINE AMINOTRANSFERASE 116 U/L (12-78); ALKALINE PHOSPHATASE 73 U/L (45-117); BILIRUBIN,TOTAL 1.3 mg/dL (0.2-1.0); TOTAL PROTEIN 8.3 g/dL (6.4-8.2)
[2019-12-25] MEDS ORDERED: ACETAMINOPHEN 325 MG TABLET ONE (21:39)
[2019-12-25] MEDS ORDERED: ACETAMINOPHEN 325 MG TABLET PO ONE (22:00)
--- NOTE | 2019-12-25 22:01 | NUR ---
DR GUPTA IN ROOM
--- NOTE | 2019-12-25 22:55 | NUR ---
pt has been seen by the hospitalist.
[2019-12-25] MEDS ORDERED: ONDANSETRON 2MG/ML, 2ML IV PRN (23:00)
[2019-12-25] MEDS ORDERED: ALUMINUM/MAG/SIMETHICONE 30 ML UDC PO PRN (23:00)
[2019-12-25] MEDS ORDERED: ALBUTEROL HFA 90 MCG/SPRAY INH PRN (23:00)
[2019-12-25] MEDS ORDERED: LABETALOL 5MG/ML, 20ML IVPush PRN (23:00)
[2019-12-25] MEDS ORDERED: LORazepam 2 MG/ML, 1ML IV PRN ×4 (23:00)
[2019-12-25] MEDS ORDERED: DOCUSATE 100 MG CAPSULE PO PRN (23:00)
[2019-12-26] MEDS: HEPARIN 5,000 UNITS/ML, 1ML SQ SCH ×3 (00:08→20:24)
[2019-12-26] MEDS: SODIUM CHLORIDE 0.9% 1,000 ML IV SCH ×3 (00:13→12:40)
[2019-12-26 03:19] VITALS: BP 157/94
[2019-12-26] MEDS: LORazepam 2 MG/ML, 1ML IV PRN ×3 (03:23→21:31)
[2019-12-26 05:13] LABS: BASOPHILS # (AUTO) 0.02 x10^3/uL (0-0.1); BASOPHILS % (AUTO) 0 % (0-1); EOSINOPHILS # (AUTO) 0.03 x10^3/uL (0-0.4); EOSINOPHILS % (AUTO) 1 % (1-7); LYMPHOCYTES # (AUTO) 1.11 x10^3/uL (1-3.4); LYMPHOCYTES % (AUTO) 17 % (22-44); MD NO; MEAN CORPUSCULAR HEMOGLOBIN 31.1 pg (27.5-34.5); MEAN CORPUSCULAR HGB CONC 33.5 g/dL (33.2-36.2); MEAN PLATELET VOLUME 7.6 fL (7.4-10.4); MONOCYTES # (AUTO) 0.69 x10^3/uL (0.2-0.8); MONOCYTES % (AUTO) 11 % (2-9); NEUTROPHILS % (AUTO) 71 % (42-75); PLATELET COUNT 176 x10^3/uL (130-400); RED BLOOD COUNT 4.62 x10^6/uL (4.38-5.82); RED CELL DISTRIBUTION WIDTH 15.1 % (9.4-14.8)
[2019-12-26 05:26] LABS: CALCIUM 8.3 mg/dL (8.5-10.1); CHLORIDE 101 mmol/L (98-107)
[2019-12-26 05:31] LABS: ALANINE AMINOTRANSFERASE 95 U/L (12-78); ALBUMIN 3.7 g/dL (3.4-5.0); ALKALINE PHOSPHATASE 60 U/L (45-117); ANION GAP 9 mmol/L (5-15); BILIRUBIN,TOTAL 1.8 mg/dL (0.2-1.0); CREATININE 0.79 mg/dL (0.7-1.3); TOTAL PROTEIN 7.3 g/dL (6.4-8.2)
[2019-12-26] MEDS: INSULIN REGULAR 100 UNITS/ML, 3ML VIAL SQ-INSULIN SCH ×4 (07:00→21:30)
[2019-12-26] MEDS ORDERED: ATORVASTATIN 80 MG TABLET PO SCH (09:00)
[2019-12-26] MEDS: MULTIVITAMINS/MINERALS TABLET PO SCH (10:43)
[2019-12-26 13:03] VITALS: BP 129/85
[2019-12-26 19:31] VITALS: BP 117/77
[2019-12-26] MEDS ORDERED: INSULIN GLARGINE 100 UNITS/ML, PEN SQ-INSULIN SCH ×2 (21:00)
[2019-12-27 01:00] VITALS: BP 129/83
[2019-12-27] MEDS: HEPARIN 5,000 UNITS/ML, 1ML SQ SCH ×2 (04:36→12:00)
[2019-12-27] MEDS ORDERED: HYDR50TA99 PO (05:04)
[2019-12-27] MEDS ORDERED: ACET-1600 PO (05:04)
[2019-12-27] MEDS ORDERED: CLON-364 PO (05:04)
[2019-12-27 05:47] LABS: BASOPHILS # (AUTO) 0.01 x10^3/uL (0-0.1); BASOPHILS % (AUTO) 0 % (0-1); EOSINOPHILS # (AUTO) 0.11 x10^3/uL (0-0.4); EOSINOPHILS % (AUTO) 2 % (1-7); LYMPHOCYTES # (AUTO) 1.45 x10^3/uL (1-3.4); LYMPHOCYTES % (AUTO) 24 % (22-44); MD NO; MEAN CORPUSCULAR HEMOGLOBIN 31.2 pg (27.5-34.5); MEAN CORPUSCULAR HGB CONC 33.4 g/dL (33.2-36.2); MEAN CORPUSCULAR VOLUME 93.5 fL (81-97); MEAN PLATELET VOLUME 7.7 fL (7.4-10.4); MONOCYTES # (AUTO) 0.51 x10^3/uL (0.2-0.8); MONOCYTES % (AUTO) 8 % (2-9); NEUTROPHILS # (AUTO) 3.95 x10^3/uL (1.8-6.8); NEUTROPHILS % (AUTO) 66 % (42-75); PLATELET COUNT 158 x10^3/uL (130-400); RED BLOOD COUNT 4.69 x10^6/uL (4.38-5.82); RED CELL DISTRIBUTION WIDTH 14.6 % (9.4-14.8)
[2019-12-27 06:15] VITALS: BP 113/70
[2019-12-27 06:16] LABS: ALBUMIN 3.4 g/dL (3.4-5.0); CALCIUM 8.3 mg/dL (8.5-10.1); CHLORIDE 104 mmol/L (98-107)
[2019-12-27 06:20] LABS: ALANINE AMINOTRANSFERASE 89 U/L (12-78); ALKALINE PHOSPHATASE 56 U/L (45-117); ANION GAP 7 mmol/L (5-15); BILIRUBIN,TOTAL 1.5 mg/dL (0.2-1.0); CREATININE 0.75 mg/dL (0.7-1.3); TOTAL PROTEIN 7.1 g/dL (6.4-8.2)
[2019-12-27] MEDS ORDERED: INSU100I13 SQ-INSULIN (08:21)
[2019-12-27] MEDS ORDERED: METF10007 PO (08:21)
[2019-12-27] MEDS ORDERED: HYDR-826 PO (08:21)
[2019-12-27] MEDS: MULTIVITAMINS/MINERALS TABLET PO SCH (08:56)
[2019-12-27] MEDS: INSULIN REGULAR 100 UNITS/ML, 3ML VIAL SQ-INSULIN SCH ×2 (08:57→12:06)
== END 2019-12-27 12:40 | disposition home or self-care (01) | DRG 775 ==
LOC: ED 21:55 → EDIP 23:04 → 5SO 23:13 → DCLOUNGE 12-27 12:33
PROVIDERS: ADMIT Family Medicine; ATTEND Hospitalist
DX: F10.239 Alcohol dependence with withdrawal, unspecified (principal); E11.65 Type 2 diabetes mellitus with hyperglycemia; F10.229 Alcohol dependence with intoxication, unspecified; E78.5 Hyperlipidemia, unspecified; E87.1 Hypo-osmolality and hyponatremia; E87.2 Acidosis; F20.9 Schizophrenia, unspecified; F41.1 Generalized anxiety disorder; I10 Essential (primary) hypertension; J45.909 Unspecified asthma, uncomplicated; N17.0 Acute kidney failure with tubular necrosis; R56.9 Unspecified convulsions; Z91.19 Patient's noncompliance with other medical treatment and regimen; F32.9 Major depressive disorder, single episode, unspecified; R74.0 Nonspecific elevation of levels of transaminase and lactic acid dehydrogenase [LDH]; Z88.1 Allergy status to other antibiotic agents; Z88.8 Allergy status to other drugs, medicaments and biological substances; Z79.4 Long term (current) use of insulin; R06.89 Other abnormalities of breathing; R00.0 Tachycardia, unspecified
CPT/HCPCS: 36415; 70450; 80053; 80307; 82962; 85025; 93005; G0378; J1644; J1815; J2405; J3411; J3475; J2060; J7030; Q0177

== ENCOUNTER 2020-01-16 08:40 | Emergency (ER) | payer MEDICAID ==
[~2020-01-16] VITALS: Ht 185.4 cm; Wt 109.0 kg
[~2020-01-16 08:40] MED LIST changes: +ACET-1600 PO; +CLON-364 PO; +HYDR50TA99 PO
--- NOTE | 2020-01-16 08:57 | NUR ---
SHELLFISH CHECKER: FSBS 454, EKG DONE IN TRIAGE
--- NOTE | 2020-01-16 09:23 | NUR ---
THIS IS A 40 YO M W/ C/O SEIZURE AT 0000 THIS MORNING. PT REPORTS HITTING HEAD ON SINK DURING SEIZURE. PT REPORTS LOC. PT REPORTS DRINKING VODKA DAILY, LAST DRINK AT 0200. PT REPORTS HAS NOT TAKEN INSULIN, KLONIPIN OF BUSPIRONE X3 WEEKS. PT REPORTS AUDITORY HALLUCINATIONS "TELLING ME I NEED ANOTHER DRINK", VISUAL HALLUCINATIONS "SNAKES AND RATS CRAWLING ON MY BODY", PT REPORTS LAST USED METH AT 0200 THIS AM. SITTER REQUESTED FROM COMPUTER PERIPHERAL EQUIPMENT OPERATOR. SEIZURE PRECAUTIONS IN PLACE. PIV STARTED AND LABS DRAWN.
--- NOTE | 2020-01-16 09:27 | NUR ---
PT STATES "I NEED TO TELL YOU SOMETHING, LAST TIME I WAS AT [facility] I TRIED TO JUMP OUT OF THE WINDOW BUT THE EYE CLINIC MANAGER STOPPED, WHY DID I DO THAT? DO YOU HAVE SECURITY GUARDS?" PT DENIES SI/HI.
[2020-01-16] MEDS ORDERED: SODIUM CHLORIDE FLUSH 10ML SYR IVF ONE (09:30)
[2020-01-16] MEDS ORDERED: ONDANSETRON 2MG/ML, 2ML IVPush ONE (09:30)
[2020-01-16] MEDS ORDERED: SODIUM CHLORIDE 0.9% 1,000ML IVBOLUS ONE (09:30)
--- NOTE | 2020-01-16 09:31 | NUR ---
PT TO XR.
[2020-01-16 09:40] LABS: FIO2 RA %
[2020-01-16 09:44] LABS: PH, VENOUS 7.384 pH (7.320-7.420)
[2020-01-16 09:48] LABS: BASOPHILS % (AUTO) 1 % (0-1); EOSINOPHILS % (AUTO) 3 % (1-7); LYMPHOCYTES % (AUTO) 27 % (22-44); MEAN CORPUSCULAR HEMOGLOBIN 31.3 pg (27.5-34.5); MEAN PLATELET VOLUME 7.7 fL (7.4-10.4); MONOCYTES % (AUTO) 5 % (2-9); NEUTROPHILS % (AUTO) 65 % (42-75); PLATELET COUNT 443 x10^3/uL (130-400); RED BLOOD COUNT 5.06 x10^6/uL (4.38-5.82); RED CELL DISTRIBUTION WIDTH 14.3 % (9.4-14.8)
[2020-01-16 09:50] LABS: MD NO
--- NOTE | 2020-01-16 09:54 | NUR ---
TELEPHONE CALL RECEIVED FROM LAB. PER TECH VENOUS BLOOD GAS WAS DRAWN FROM ARTERIAL. PER , NO REDRAW NECESSARY. RESULTS PROVIDED FROM LAB.. PH 7.383 PCO2 35 PO2 62 BICARB 21 BASE EXCESS -3.7 O2 SAT 98.6
[2020-01-16 09:55] LABS: ALBUMIN 3.9 g/dL (3.4-5.0); ANION GAP 13 mmol/L (5-15); CALCIUM 8.8 mg/dL (8.5-10.1); CHLORIDE 102 mmol/L (98-107)
[2020-01-16 09:58] LABS: ALANINE AMINOTRANSFERASE 170 U/L (12-78); ALKALINE PHOSPHATASE 124 U/L (45-117); BILIRUBIN,TOTAL 0.3 mg/dL (0.2-1.0); CREATININE 0.95 mg/dL (0.7-1.3); TOTAL PROTEIN 7.9 g/dL (6.4-8.2)
[2020-01-16 10:07] VITALS: BP 119/78
--- NOTE | 2020-01-16 10:24 | NUR ---
PT ANXIOUS, PT SITTING UP AT EDGE OF BED STATES HE WANTS TO LEAVE. REQUESTING MEDS FOR ANXIETY. VANE PRICE UPDATED, NO NEW ORDERS RECEIVED.
[2020-01-16] MEDS ORDERED: LORazepam 2 MG/ML, 1ML IVPush ONE (10:30)
[2020-01-16 10:31] LABS: ACETONE, SERUM Trace (Negative)
--- NOTE | 2020-01-16 11:10 | NUR ---
Patient given discharge instructions and they have confirmed that they understand the instructions. Patient ambulatory with steady gait.
== END 2020-01-16 11:11 | disposition home or self-care (01) ==
LOC: ED 11:04
DX: E11.65 Type 2 diabetes mellitus with hyperglycemia (principal); R74.01 Elevation of levels of liver transaminase levels; F10.220 Alcohol dependence with intoxication, uncomplicated; R11.10 Vomiting, unspecified; R56.9 Unspecified convulsions; R51.9 Headache, unspecified; R94.31 Abnormal electrocardiogram [ECG] [EKG]; I10 Essential (primary) hypertension; Z88.1 Allergy status to other antibiotic agents; Z88.9 Allergy status to unspecified drugs, medicaments and biological substances; Z79.899 Other long term (current) drug therapy; Y90.0 Blood alcohol level of less than 20 mg/100 ml
CPT/HCPCS: 36415; 70450; 73564; 80053; 80307; 82010; 82803; 82962; 83690; 85025; 93005; 96361; 96374; 99285; J2405; J7030

== ENCOUNTER 2020-01-17 16:55 | Emergency (ER) | payer MEDICAID ==
[~2020-01-17] VITALS: Ht 185.4 cm; Wt 127.0 kg
[2020-01-17 17:02] VITALS: BP 122/82
--- NOTE | 2020-01-17 17:05 | NUR ---
PT PLACED IN HOSPITAL GOWN, ON VITALS MONITORS. PT BLOOD SUGAR 440 WITH EMS WILL RECHECK FSBS
--- NOTE | 2020-01-17 17:30 | NUR ---
ERP WENT IN TO SEE PT, PT NOT IN ROOM. THIS RN WENT TO LOCATE PT, PT WAS WALKING BACK TO ROOM. PT HAS REMOVED HOSPITAL GOWN AND ALL MONITORS. PT HAS ALSO REMOVED IV. PT BACK IN ROOM AT THIS TIME FULLY DRESSED IN STREET CLOTHES. STATED HE TOOK THE GOWN OFF BECAUSE HE FELT HOT. ERP AWARE PT BACK IN ROOM.
--- NOTE | 2020-01-17 17:40 | NUR ---
PT HAS LEFT ROOM.
== END 2020-01-17 17:46 | disposition left against medical advice (07) ==
LOC: ED 17:35
DX: R56.9 Unspecified convulsions (principal); Z53.21 Procedure and treatment not carried out due to patient leaving prior to being seen by health care provider

== ENCOUNTER 2020-02-19 17:44 | Inpatient (IN) | payer MEDICAID ==
[~2020-02-19] VITALS: Ht 185.4 cm; Wt 106.1 kg
[2020-02-19 18:32] LABS: BASOPHILS % (AUTO) 1 % (0-1); EOSINOPHILS % (AUTO) 1 % (1-7); LYMPHOCYTES % (AUTO) 26 % (22-44); MD NO; MEAN CORPUSCULAR HEMOGLOBIN 31.8 pg (27.5-34.5); MEAN CORPUSCULAR HGB CONC 34.6 g/dL (33.2-36.2); MEAN PLATELET VOLUME 7.1 fL (7.4-10.4); MONOCYTES % (AUTO) 11 % (2-9); NEUTROPHILS % (AUTO) 61 % (42-75); PLATELET COUNT 197 x10^3/uL (130-400); RED BLOOD COUNT 5.06 x10^6/uL (4.38-5.82)
[2020-02-19 18:43] LABS: ALANINE AMINOTRANSFERASE 235 U/L (12-78); ALBUMIN 4.5 g/dL (3.4-5.0); ANION GAP 14 mmol/L (5-15); CALCIUM 9.1 mg/dL (8.5-10.1); CHLORIDE 94 mmol/L (98-107); CREATININE 1.01 mg/dL (0.7-1.3)
[2020-02-19 18:48] LABS: ALKALINE PHOSPHATASE 80 U/L (45-117); BILIRUBIN,TOTAL 1.3 mg/dL (0.2-1.0); TOTAL PROTEIN 8.9 g/dL (6.4-8.2); TROPONIN I 0.024 ng/mL (0.000-0.045)
[2020-02-19 19:11] LABS: ACETONE, SERUM Trace (Negative)
--- NOTE | 2020-02-19 19:15 | NUR ---
PT IN GOWN IN [facility]. PT PLACED ON VS AND CARDIAC MONITORS. VSS AT THIS TIME. PT EDUCATED ON ER PROCESS AND POC AND VERBALIZES UNDERSTANDING. PIV ACCESS ESTABLISHED AT THIS TIME. AWAITING ERP FOR PT HISTORY AND ASSESSMENT. PT HAS CALL LIGHT WITHIN REACH AT THIS TIME.
[2020-02-19] MEDS ORDERED: THIAMINE 100 MG in SODIUM CHLORIDE 0.9% 50 ML IVPB ONE (19:30)
[2020-02-19] MEDS ORDERED: SODIUM CHLORIDE 0.9% 1,000ML IVBOLUS ONE (19:30)
[2020-02-19] MEDS ORDERED: ONDANSETRON 2MG/ML, 2ML IVPush ONE (19:30)
[2020-02-19] MEDS ORDERED: SODIUM CHLORIDE FLUSH 10ML SYR IVF ONE (19:30)
[2020-02-19] MEDS ORDERED: SODIUM CHLORIDE 0.9% 1,000 ML IV ONE (19:30)
[2020-02-19] MEDS ORDERED: LORazepam 2 MG/ML, 1ML ONE (19:42)
[2020-02-19] MEDS ORDERED: ONDANSETRON 2MG/ML, 2ML ONE (19:42)
[2020-02-19] MEDS: LORazepam 2 MG/ML, 1ML IVPush PRN ×2 (20:03→20:58)
--- NOTE | 2020-02-19 20:03 | NUR ---
PT MEDICATED PER MAR FOR ETOH WITHDRAWAL. IV FLUIDS RUNNING AT THIS TIME. PT IS CALM IN [facility] WITH STABLE VS. ALL VS AND CARDIAC MONITORS IN PLACE AT THIS TIME. PT HAS CALL LIGHT WITHIN REACH.
--- NOTE | 2020-02-19 21:11 | NUR ---
pt resting in [facility] at this time; praneeth. pt reports that he feels "much better". pr vss and updated in emr at this time. patient has call light within reach and denies any needs at this time.
[2020-02-19] MEDS ORDERED: ALBUTEROL HFA 90 MCG/SPRAY INH PRN (21:30)
[2020-02-19] MEDS ORDERED: SODIUM CHLORIDE FLUSH 10ML SYR IVF PRN (21:30)
[2020-02-19] MEDS ORDERED: CHLORDIAZEPOXIDE 25 MG CAPSULE PO PRN (21:30)
[2020-02-19] MEDS ORDERED: LORazepam 2 MG/ML, 1ML IVPush PRN (21:30)
[2020-02-19] MEDS ORDERED: ONDANSETRON 2MG/ML, 2ML IVPush PRN (22:00)
[2020-02-19] MEDS ORDERED: BISACODYL 10 MG SUPP PR PRN (22:00)
--- NOTE | 2020-02-19 22:52 | NUR ---
MEDICATIONS RECEIVED FROM PHARMACY AT THIS TIME. PT ASLEEP IN [facility] WITH NADN. PT VSS AND UPDATED IN EMR. PT HAS CALL LIGHT WITHIN REACH.
[2020-02-19] MEDS ORDERED: HEPARIN 5,000 UNITS/ML, 1ML ONE (23:04)
--- NOTE | 2020-02-19 23:11 | NUR ---
ATTEMPTED REPORT OF PT X1. UNABLE TO REACH FLOOR AT THIS TIME.
[2020-02-19] MEDS: LEVETIRACETAM 500 MG in SODIUM CHLORIDE 0.9% 100 ML IV SCH (23:14)
[2020-02-19] MEDS: HEPARIN 5,000 UNITS/ML, 1ML SQ SCH (23:15)
[2020-02-19] MEDS: INSULIN LISPRO 100 UNITS/ML, PEN SQ-INSULIN SCH (23:15)
--- NOTE | 2020-02-19 23:27 | NUR ---
REPORT OF PT TO LESVIA SILVA. ALL QUESTIONS ANSWERED. RICARDO VERBALIZES UNDERSTANDING OF NEED TO HANG BANANA BAG ON FLOOR. ALL OTHER MEDICATIONS ADMINISTERED PRIOR TO TRANSPORT OF PT TO FLOOR. PT EDUCATED ON ROOM ASSIGNMENT AND VERBALIZES UNDERSTANDING. TECH PAGED FOR TRANSPORT OF PT FROM ER TO FLOOR AT THIS TIME.
[2020-02-20] MEDS: POTASSIUM CHLORIDE 20 MEQ, MAGNESIUM SULFATE 1 GM, THIAMINE 200 MG, FOLIC ACID 1 MG, MV... IV SCH (00:16)
[2020-02-20 00:27] VITALS: BP 91/59
[2020-02-20] MEDS: INSULIN LISPRO 100 UNITS/ML, PEN SQ-INSULIN SCH ×4 (04:03→22:27)
[2020-02-20 05:57] LABS: ANION GAP 8 mmol/L (5-15); CALCIUM 8.2 mg/dL (8.5-10.1); CHLORIDE 100 mmol/L (98-107)
[2020-02-20 06:00] LABS: BASOPHILS % (AUTO) 0 % (0-1); EOSINOPHILS % (AUTO) 1 % (1-7); LYMPHOCYTES % (AUTO) 24 % (22-44); MEAN CORPUSCULAR HEMOGLOBIN 31.4 pg (27.5-34.5); MEAN PLATELET VOLUME 7.5 fL (7.4-10.4); MONOCYTES % (AUTO) 14 % (2-9); NEUTROPHILS % (AUTO) 61 % (42-75); PLATELET COUNT 163 x10^3/uL (130-400); RED BLOOD COUNT 4.32 x10^6/uL (4.38-5.82); RED CELL DISTRIBUTION WIDTH 15.3 % (9.4-14.8)
[2020-02-20] MEDS: HEPARIN 5,000 UNITS/ML, 1ML SQ SCH ×2 (06:08→16:50)
[2020-02-20 06:14] LABS: MD NO
[2020-02-20] MEDS ORDERED: FLU VACC QS2020-21(6MOS UP)/PF 60MCG/0.5 ML SYR IM ONE (07:00)
[2020-02-20 07:07] VITALS: BP 102/67
[2020-02-20] MEDS ORDERED: LORazepam 1MG TABLET PO PRN ×2 (08:30)
[2020-02-20] MEDS ORDERED: LORazepam 0.5MG TABLET PO PRN (08:30)
[2020-02-20] MEDS ORDERED: LORazepam 2 MG/ML, 1ML IV PRN ×3 (08:30)
[2020-02-20] MEDS: LEVETIRACETAM 500 MG in SODIUM CHLORIDE 0.9% 100 ML IV SCH (11:09)
[2020-02-20] MEDS: SODIUM CHLORIDE 0.9% 1,000 ML IV SCH ×2 (11:09→20:24)
[2020-02-20 14:03] VITALS: BP 98/64
[2020-02-20 19:11] VITALS: BP 96/57
[2020-02-20] MEDS: LEVETIRACETAM 500 MG TABLET PO SCH (21:34)
[2020-02-21] MEDS: POTASSIUM CHLORIDE 20 MEQ, MAGNESIUM SULFATE 1 GM, THIAMINE 200 MG, FOLIC ACID 1 MG, MV... IV SCH (00:04)
[2020-02-21 02:03] VITALS: BP 103/66
[2020-02-21] MEDS: HEPARIN 5,000 UNITS/ML, 1ML SQ SCH (02:49)
[2020-02-21] MEDS: INSULIN LISPRO 100 UNITS/ML, PEN SQ-INSULIN SCH (03:20)
[2020-02-21 05:36] LABS: BASOPHILS % (AUTO) 1 % (0-1); EOSINOPHILS % (AUTO) 3 % (1-7); LYMPHOCYTES % (AUTO) 28 % (22-44); MEAN CORPUSCULAR HEMOGLOBIN 31.7 pg (27.5-34.5); MEAN CORPUSCULAR HGB CONC 33.7 g/dL (33.2-36.2); MEAN PLATELET VOLUME 7.2 fL (7.4-10.4); MONOCYTES % (AUTO) 14 % (2-9); NEUTROPHILS % (AUTO) 55 % (42-75); PLATELET COUNT 152 x10^3/uL (130-400); RED BLOOD COUNT 4.15 x10^6/uL (4.38-5.82); RED CELL DISTRIBUTION WIDTH 14.7 % (9.4-14.8)
[2020-02-21 05:39] LABS: MD NO
[2020-02-21 05:56] LABS: CHLORIDE 103 mmol/L (98-107)
[2020-02-21 06:05] LABS: ALANINE AMINOTRANSFERASE 156 U/L (12-78); ALBUMIN 3.1 g/dL (3.4-5.0); ALKALINE PHOSPHATASE 53 U/L (45-117); ANION GAP 7 mmol/L (5-15); BILIRUBIN,TOTAL 1.4 mg/dL (0.2-1.0); CALCIUM 7.9 mg/dL (8.5-10.1); CREATININE 0.73 mg/dL (0.7-1.3); TOTAL PROTEIN 6.4 g/dL (6.4-8.2)
[2020-02-21 07:44] VITALS: BP 106/72
[2020-02-21] MEDS: LEVETIRACETAM 500 MG TABLET PO SCH (08:39)
[2020-02-21] MEDS ORDERED: metFORMIN 850 MG TABLET PO SCH (12:00)
[2020-02-22] MEDS ORDERED: SODIUM CHLORIDE 0.9% 1,000 ML IV SCH (08:30)
== END 2020-02-21 11:33 | disposition left against medical advice (07) | DRG 282 ==
LOC: ED 21:04 → EDIP 21:15 → 5SO 23:43
PROVIDERS: ADMIT Family Medicine; ATTEND Internal Medicine
DX: K85.20 Alcohol induced acute pancreatitis without necrosis or infection (principal); E11.65 Type 2 diabetes mellitus with hyperglycemia; E66.9 Obesity, unspecified; Z68.30 Body mass index [BMI] 30.0-30.9, adult; E83.51 Hypocalcemia; E86.0 Dehydration; E87.1 Hypo-osmolality and hyponatremia; E87.2 Acidosis; F10.239 Alcohol dependence with withdrawal, unspecified; F20.9 Schizophrenia, unspecified; F32.9 Major depressive disorder, single episode, unspecified; F41.1 Generalized anxiety disorder; G40.909 Epilepsy, unspecified, not intractable, without status epilepticus; I10 Essential (primary) hypertension; J45.909 Unspecified asthma, uncomplicated; K70.10 Alcoholic hepatitis without ascites; Z79.4 Long term (current) use of insulin; Z83.3 Family history of diabetes mellitus; Z91.14 Patient's other noncompliance with medication regimen; Z53.29 Procedure and treatment not carried out because of patient's decision for other reasons
CPT/HCPCS: 36415; 71045; 80048; 80053; 82010; 82330; 82800; 82962; 83036; 83690; 83880; 84484; 85025; 90686; 93005; G0378; J1644; J1953; J2405; J3411; J3475; J3480; J1815; J2060; J7030

== ENCOUNTER 2020-03-18 06:30 | Emergency (ER) | payer MEDICAID ==
[~2020-03-18] VITALS: Ht 185.4 cm; Wt 105.0 kg
--- NOTE | 2020-03-18 06:45 | NUR ---
PT BIB FOR N/V AND RUQ ABD PAIN X 3 WEEKS. VOMIT IS GREEN IN COLOR. PT ALSO HASNT TAKEN HIS INSULIN IN 2 DAYS. [facility] MEDICATED WITH 4 MG ZOFRAN AND FSBG BY RICK WAS 325. RECHECKED FSBG IN ER AND IT IS 340. MED STUDENT AT BEDSIDE
--- NOTE | 2020-03-18 06:59 | NUR ---
REPORT TO SANJAY LAKHANI
--- NOTE | 2020-03-18 07:03 | NUR ---
SBAR RPT REC'D AND ASSUMED PT CARE. PT OOB AND AMBULATED TO BATHROOM UPRIGHT STEADY GAIT. URINE SAMPLE COLLECTED. RTD TO ROOM W/O INCIDENT, ALL MONITORS IN PLACE, VSS WITH HR TACHY 119-124 CALL LIGHT W/I REACH
[2020-03-18 07:04] VITALS: BP 126/80
[2020-03-18 07:24] LABS: BASOPHILS % (AUTO) 1 % (0-1); EOSINOPHILS % (AUTO) 1 % (1-7); LYMPHOCYTES % (AUTO) 27 % (22-44); MEAN CORPUSCULAR HGB CONC 34.5 g/dL (33.2-36.2); MEAN PLATELET VOLUME 7.9 fL (7.4-10.4); MONOCYTES % (AUTO) 4 % (2-9); NEUTROPHILS % (AUTO) 67 % (42-75); PLATELET COUNT 336 x10^3/uL (130-400); RED BLOOD COUNT 5.22 x10^6/uL (4.38-5.82); RED CELL DISTRIBUTION WIDTH 14.2 % (9.4-14.8)
[2020-03-18 07:26] LABS: MD NO
[2020-03-18 07:36] LABS: ALANINE AMINOTRANSFERASE 168 U/L (12-78); ALBUMIN 4.1 g/dL (3.4-5.0); ANION GAP 13 mmol/L (5-15); CALCIUM 8.8 mg/dL (8.5-10.1); CHLORIDE 104 mmol/L (98-107); CREATININE 1.15 mg/dL (0.7-1.3)
[2020-03-18 07:38] LABS: ALKALINE PHOSPHATASE 86 U/L (45-117); BILIRUBIN,TOTAL 0.5 mg/dL (0.2-1.0); TOTAL PROTEIN 8.4 g/dL (6.4-8.2)
--- NOTE | 2020-03-18 07:43 | NUR ---
DR GUPTA AT BEDSIDE. PT ASSESSMENT & POC REVIEWED.
[2020-03-18] MEDS ORDERED: SODIUM CHLORIDE 0.9% 1,000ML IVBOLUS ONE (08:00)
[2020-03-18 09:03] LABS: MICROSCOPIC NOT IND
== END 2020-03-18 07:58 | disposition other institution (70) ==
LOC: ED 07:07
DX: F10.229 Alcohol dependence with intoxication, unspecified (principal); R10.9 Unspecified abdominal pain; R00.0 Tachycardia, unspecified; R11.2 Nausea with vomiting, unspecified; E11.9 Type 2 diabetes mellitus without complications; E78.5 Hyperlipidemia, unspecified; I10 Essential (primary) hypertension; Z88.0 Allergy status to penicillin; Z88.8 Allergy status to other drugs, medicaments and biological substances; Y90.9 Presence of alcohol in blood, level not specified
CPT/HCPCS: 80053; 80320; 81003; 82962; 83690; 85025; 93005; 99284; G0480

== ENCOUNTER 2020-03-30 15:07 | Inpatient (IN) | payer MEDICAID ==
[~2020-03-30] VITALS: Ht 185.4 cm; Wt 109.0 kg
[2020-03-30] MEDS ORDERED: LORazepam 1MG TABLET PO ONE (16:00)
[2020-03-30] MEDS ORDERED: SODIUM CHLORIDE FLUSH 10ML SYR IVF ONE (17:30)
[2020-03-30] MEDS ORDERED: THIAMINE 100MG TABLET PO ONE (17:30)
[2020-03-30] MEDS ORDERED: SODIUM CHLORIDE 0.9% 1,000ML IVBOLUS ONE ×3 (17:30→20:30)
[2020-03-30] MEDS ORDERED: ONDANSETRON 2MG/ML, 2ML IVPush ONE (17:30)
[2020-03-30 18:00] LABS: BASOPHILS % (AUTO) 0 % (0-1); EOSINOPHILS % (AUTO) 0 % (1-7); LYMPHOCYTES % (AUTO) 5 % (22-44); MEAN CORPUSCULAR HGB CONC 34.4 g/dL (33.2-36.2); MEAN PLATELET VOLUME 7.7 fL (7.4-10.4); MONOCYTES % (AUTO) 5 % (2-9); NEUTROPHILS % (AUTO) 90 % (42-75); PLATELET COUNT 219 x10^3/uL (130-400); RED BLOOD COUNT 5.02 x10^6/uL (4.38-5.82); RED CELL DISTRIBUTION WIDTH 14.5 % (9.4-14.8)
[2020-03-30] MEDS ORDERED: ONDANSETRON ODT 4 MG ONE (18:04)
[2020-03-30] MEDS ORDERED: LORazepam 2 MG/ML, 1ML ONE ×2 (18:04→19:13)
[2020-03-30] MEDS ORDERED: THIAMINE 100MG TABLET ONE (18:04)
[2020-03-30] MEDS: LORazepam 2 MG/ML, 1ML IVPush PRN ×3 (18:09→22:24)
[2020-03-30 18:14] LABS: ALANINE AMINOTRANSFERASE 95 U/L (12-78); ALBUMIN 4.5 g/dL (3.4-5.0); ANION GAP 23 mmol/L (5-15); CALCIUM 8.6 mg/dL (8.5-10.1); CHLORIDE 96 mmol/L (98-107); CREATININE 1.11 mg/dL (0.7-1.3)
[2020-03-30 18:17] LABS: ALKALINE PHOSPHATASE 79 U/L (45-117); BILIRUBIN,TOTAL 1.6 mg/dL (0.2-1.0); TOTAL PROTEIN 9.1 g/dL (6.4-8.2)
[2020-03-30 18:28] LABS: MD SCAN
--- NOTE | 2020-03-30 18:33 | NUR ---
PT HAS BEEN DRINKING TWICE MUCH HE NORMALLY DOES OF WISKEY FOR THE LAST COUPLE WEEKS AND IS NOW INTERESTED IN DETOX.
[2020-03-30 18:54] LABS: ACETONE, SERUM Large (80mg/dL) (Negative)
--- NOTE | 2020-03-30 18:59 | NUR ---
Report from LESVIA Jiménez.
--- NOTE | 2020-03-30 19:10 | NUR ---
First contact with pt, pt with hand tremors, slight diaphoresis, HR 110. Will repeat ativan per order.
--- NOTE | 2020-03-30 19:46 | NUR ---
Lab called with hco3 9.4, ph 7.29 informed ER-P. Pt receiving 2nd Liter NS wide open. Is less tremulous, HR improving 110's Sinus tach, no ectopy. Will continue to monitor.
--- NOTE | 2020-03-30 20:24 | NUR ---
Less tremors, HR 115, o2sat wnl. Will continue to monitor.
[2020-03-30] MEDS ORDERED: ONDANSETRON 2MG/ML, 2ML IV PRN (20:30)
[2020-03-30] MEDS ORDERED: BISACODYL 10 MG SUPP PR PRN (20:30)
[2020-03-30] MEDS ORDERED: ACETAMINOPHEN 325 MG TABLET PO PRN (20:30)
[2020-03-30] MEDS ORDERED: CHLORDIAZEPOXIDE 25 MG CAPSULE PO PRN (20:30)
[2020-03-30] MEDS ORDERED: HEPARIN 5,000 UNITS/ML, 1ML SQ SCH (20:30)
[2020-03-30] MEDS ORDERED: GLUCAGON 1 MG IM PRN (20:30)
[2020-03-30] MEDS ORDERED: SODIUM CHLORIDE 0.9% 1,000 ML IV SCH (20:30)
[2020-03-30] MEDS ORDERED: DEXTROSE 4 GM TAB.CHEW PO PRN (20:30)
[2020-03-30] MEDS ORDERED: DEXTROSE 50%, 50ML SYRINGE IVPush PRN (20:30)
--- NOTE | 2020-03-30 20:46 | NUR ---
Seizure pads put on bed.
[2020-03-30] MEDS ORDERED: LORazepam 2 MG/ML, 1ML IVPush PRN (21:00)
[2020-03-30 21:01] LABS: ANION GAP 24 mmol/L (5-15); CALCIUM 8.5 mg/dL (8.5-10.1); CHLORIDE 97 mmol/L (98-107); CREATININE 1.13 mg/dL (0.7-1.3)
--- NOTE | 2020-03-30 21:08 | NUR ---
2nd IV started, insulin drip requested. Current BG 300. Pt to be held in ER on ICU hold.
[2020-03-30] MEDS: SODIUM CHLORIDE FLUSH 10ML SYR IVF SCH (21:14)
[2020-03-30 21:34] LABS: MICROSCOPIC AUTO
[2020-03-30] MEDS: REGULAR INSULIN 100 UNITS in SODIUM CHLORIDE 0.9% 99 ML IV PRN (21:44)
--- NOTE | 2020-03-30 21:45 | NUR ---
bg 300, K+4.3. STARTED INSULIN DRIP PER PROTOCOL AT 2UNITS/HR. REQUESTED THE D5NS WITH KCL FROM PHARM. WILL CONTINUE TO MONITOR.
[2020-03-30] MEDS ORDERED: HEPARIN 5,000 UNITS/ML, 1ML ONE (22:14)
[2020-03-30] MEDS ORDERED: FAMOTIDINE 20 MG/2 ML ONE (22:15)
[2020-03-30] MEDS: FAMOTIDINE 20 MG/2 ML IVPush SCH (22:21)
--- NOTE | 2020-03-30 22:24 | NUR ---
BG 268, INSULIN DRIP KEPT AT 2U/HR. MEDICATED PER JUN. REPEATED ATIVAN FOR W/D. PHARM TO SEND D5KCL FOR WHEN BG DROPS BELOW 200. PT IS A/OX4. VOIDING PER URINAL. ST NO ECTOPY. WILL CONTINUE TO MONITOR.
--- NOTE | 2020-03-30 23:14 | NUR ---
Called lab re: why bmp not running. They are ordered q 4hrs, lab says they can not see this order. To expidite pt care, verbal order placed by this nurse for bmp.
--- NOTE | 2020-03-30 23:18 | NUR ---
BG 237, per protocol remains at 2U/hr. Pt switched to [facility]. Addendum: 03/31/20 at 0001 by [email or web address] Seizure pads applied to hospital bed. Pt remains with only slight tremors.
[2020-03-30 23:29] LABS: ANION GAP 19 mmol/L (5-15); CHLORIDE 104 mmol/L (98-107); CREATININE 1.04 mg/dL (0.7-1.3)
--- NOTE | 2020-03-30 23:35 | NUR ---
Call to Dr Sierra, to inform of recent chem panel. Therapy in progress, per insulin protocol. VSS, pt a/ox4. Will continue to monitor.
[2020-03-31] MEDS: REGULAR INSULIN 100 UNITS in SODIUM CHLORIDE 0.9% 99 ML IV PRN (00:17)
--- NOTE | 2020-03-31 00:19 | NUR ---
BG 243, titrated to 3units per hour.
[2020-03-31] MEDS ORDERED: CHLORDIAZEPOXIDE 25 MG CAPSULE ONE (00:58)
--- NOTE | 2020-03-31 01:01 | NUR ---
Medicated with librium for etoh w/d. Will continue to monitor.
[2020-03-31 01:05] LABS: ANION GAP 15 mmol/L (5-15); CALCIUM 7.8 mg/dL (8.5-10.1); CHLORIDE 106 mmol/L (98-107)
[2020-03-31 01:06] LABS: CREATININE 0.98 mg/dL (0.7-1.3)
--- NOTE | 2020-03-31 01:12 | NUR ---
BG 208, insulin remained at current rate.
[2020-03-31] MEDS: D5%-0.45NACL+KCL 20MEQ 1,000 ML IV SCH ×2 (02:19→15:02)
--- NOTE | 2020-03-31 02:34 | NUR ---
Noted prolonged QT interval, slight ST elevation. NO cp, STAT ekg done to compare to previous, to TRICE odom.
--- NOTE | 2020-03-31 02:40 | NUR ---
Repeat EKG reviewed by TRICE Rod. Will cotninue to monitor pt.
--- NOTE | 2020-03-31 03:23 | NUR ---
BG 167, insulin drip maintained current rate 3u/hr per protocol.
--- NOTE | 2020-03-31 04:47 | NUR ---
Called lab re: bmp due. They will send someone now.
--- NOTE | 2020-03-31 04:55 | NUR ---
Repeat BMP drawn and sent.
[2020-03-31 05:15] LABS: ALANINE AMINOTRANSFERASE 70 U/L (12-78); ALBUMIN 3.8 g/dL (3.4-5.0); ANION GAP 10 mmol/L (5-15); CALCIUM 7.9 mg/dL (8.5-10.1); CHLORIDE 108 mmol/L (98-107)
[2020-03-31 05:18] LABS: ALKALINE PHOSPHATASE 66 U/L (45-117); BILIRUBIN,TOTAL 1.5 mg/dL (0.2-1.0); CREATININE 0.99 mg/dL (0.7-1.3); TOTAL PROTEIN 7.8 g/dL (6.4-8.2)
--- NOTE | 2020-03-31 05:31 | NUR ---
Recommend downgrade to TELE, gap narrowing, has remained stable throughout the night, no tremors, sleeping.
--- NOTE | 2020-03-31 05:39 | NUR ---
BG 165, no change in insulin drip per protocol.
--- NOTE | 2020-03-31 05:49 | NUR ---
218am: NS was stopped.
--- NOTE | 2020-03-31 06:30 | NUR ---
Dr Cardenas here to evaluate pt. Plan: continue BG checks every hour, continue insulin drip, continue [id number]. Give Lantus now. In 2 hours from time lantus given. Insulin can be d/c, [id number] can be dc. Pt eligible for tx to floor.
--- NOTE | 2020-03-31 06:37 | NUR ---
Marnie Flores from pharmacy.
--- NOTE | 2020-03-31 06:51 | NUR ---
Report to LESVIA Rice
[2020-03-31] MEDS: ENOXAPARIN 40 MG/0.4 ML SQ SCH (07:00)
[2020-03-31] MEDS ORDERED: SODIUM CHLORIDE 0.9% 1,000 ML IV SCH (07:00)
[2020-03-31] MEDS ORDERED: LORazepam 1MG TABLET PO PRN ×4 (07:00)
[2020-03-31] MEDS ORDERED: LORazepam 0.5MG TABLET PO PRN (07:00)
--- NOTE | 2020-03-31 07:30 | NUR ---
REPORT RECIEVED FROM ANDRE LAKHANI, PT RESTING IN BED. NO COMPLAINTS AT THIS TIME.
[2020-03-31] MEDS ORDERED: ENOXAPARIN 40 MG/0.4 ML ONE (08:16)
[2020-03-31] MEDS ORDERED: FAMOTIDINE 20 MG/2 ML ONE (08:17)
[2020-03-31] MEDS ORDERED: THIAMINE 100MG TABLET ONE (08:17)
[2020-03-31] MEDS: FAMOTIDINE 20 MG/2 ML IVPush SCH (08:26)
[2020-03-31] MEDS: THIAMINE 100MG TABLET PO SCH (08:27)
[2020-03-31] MEDS: SODIUM CHLORIDE FLUSH 10ML SYR IVF SCH ×2 (08:27→21:57)
[2020-03-31 08:32] LABS: BASOPHILS % (AUTO) 1 % (0-1); EOSINOPHILS % (AUTO) 0 % (1-7); LYMPHOCYTES % (AUTO) 20 % (22-44); MEAN CORPUSCULAR HEMOGLOBIN 32.3 pg (27.5-34.5); MEAN CORPUSCULAR HGB CONC 35.3 g/dL (33.2-36.2); MEAN PLATELET VOLUME 7.3 fL (7.4-10.4); MONOCYTES % (AUTO) 12 % (2-9); NEUTROPHILS % (AUTO) 68 % (42-75); PLATELET COUNT 170 x10^3/uL (130-400); RED BLOOD COUNT 4.27 x10^6/uL (4.38-5.82); RED CELL DISTRIBUTION WIDTH 14.5 % (9.4-14.8)
--- NOTE | 2020-03-31 08:38 | NUR ---
Per Dr. Guevara order. insulin gtt stopped and piv fluids changed.
[2020-03-31] MEDS: INSULIN GLARGINE 100 UNITS/ML, PEN SQ-INSULIN SCH ×2 (08:40→21:58)
[2020-03-31 08:42] LABS: ANION GAP 10 mmol/L (5-15); CALCIUM 7.8 mg/dL (8.5-10.1); CHLORIDE 109 mmol/L (98-107); CREATININE 0.94 mg/dL (0.7-1.3)
--- NOTE | 2020-03-31 08:47 | NUR ---
MEDS ORDERED FROM PHARMACY
[2020-03-31 08:56] LABS: MD NO
[2020-03-31] MEDS: FOLIC ACID 1 MG TABLET PO SCH (09:00)
[2020-03-31] MEDS: MULTIVITAMINS/MINERALS TABLET PO SCH (09:00)
[2020-03-31] MEDS: CHLORDIAZEPOXIDE 25 MG CAPSULE PO SCH ×3 (11:00→21:58)
--- NOTE | 2020-03-31 11:44 | NUR ---
REPORT TO LANEY LAKHANI.
[2020-03-31 13:07] VITALS: BP 134/89
[2020-03-31 14:04] LABS: ANION GAP 15 mmol/L (5-15); CALCIUM 8.1 mg/dL (8.5-10.1); CHLORIDE 107 mmol/L (98-107); CREATININE 0.98 mg/dL (0.7-1.3)
[2020-03-31 20:29] VITALS: BP 118/72
[2020-03-31] MEDS: INSULIN LISPRO 100 UNITS/ML, PEN SQ-INSULIN SCH (21:59)
[2020-04-01 01:52] VITALS: BP 115/74
[2020-04-01 04:53] LABS: BASOPHILS % (AUTO) 0 % (0-1); EOSINOPHILS % (AUTO) 1 % (1-7); LYMPHOCYTES % (AUTO) 35 % (22-44); MEAN CORPUSCULAR HEMOGLOBIN 31.6 pg (27.5-34.5); MEAN CORPUSCULAR HGB CONC 34.7 g/dL (33.2-36.2); MEAN PLATELET VOLUME 7.8 fL (7.4-10.4); MONOCYTES % (AUTO) 10 % (2-9); NEUTROPHILS % (AUTO) 54 % (42-75); PLATELET COUNT 156 x10^3/uL (130-400); RED BLOOD COUNT 4.58 x10^6/uL (4.38-5.82); RED CELL DISTRIBUTION WIDTH 14.5 % (9.4-14.8)
[2020-04-01 04:54] LABS: ALANINE AMINOTRANSFERASE 89 U/L (12-78); ALBUMIN 3.4 g/dL (3.4-5.0); ANION GAP 10 mmol/L (5-15); CALCIUM 8.2 mg/dL (8.5-10.1); CHLORIDE 106 mmol/L (98-107); CREATININE 0.81 mg/dL (0.7-1.3)
[2020-04-01 04:56] LABS: MD NO
[2020-04-01 04:57] LABS: ALKALINE PHOSPHATASE 62 U/L (45-117); BILIRUBIN,TOTAL 1.5 mg/dL (0.2-1.0)
[2020-04-01] MEDS: CHLORDIAZEPOXIDE 25 MG CAPSULE PO SCH (06:14)
[2020-04-01] MEDS: ENOXAPARIN 40 MG/0.4 ML SQ SCH (06:15)
[2020-04-01] MEDS: THIAMINE 100MG TABLET PO SCH (08:07)
[2020-04-01] MEDS: FOLIC ACID 1 MG TABLET PO SCH (08:07)
[2020-04-01] MEDS: MULTIVITAMINS/MINERALS TABLET PO SCH (08:08)
[2020-04-01] MEDS: INSULIN GLARGINE 100 UNITS/ML, PEN SQ-INSULIN SCH (08:08)
[2020-04-01] MEDS: SODIUM CHLORIDE FLUSH 10ML SYR IVF SCH (08:09)
[2020-04-01] MEDS: INSULIN LISPRO 100 UNITS/ML, PEN SQ-INSULIN SCH (08:09)
[2020-04-01 08:34] VITALS: BP 130/93
== END 2020-04-01 11:30 | disposition home or self-care (01) | DRG 420 ==
LOC: ED 15:28 → EDIP 20:04 → 3N 03-31 12:45 → DCLOUNGE 04-01 11:04
PROVIDERS: ADMIT Internal Medicine; ATTEND Internal Medicine
DX: E10.10 Type 1 diabetes mellitus with ketoacidosis without coma (principal); F10.239 Alcohol dependence with withdrawal, unspecified; F20.9 Schizophrenia, unspecified; F32.9 Major depressive disorder, single episode, unspecified; I10 Essential (primary) hypertension; J45.909 Unspecified asthma, uncomplicated; R00.0 Tachycardia, unspecified; R65.10 Systemic inflammatory response syndrome (SIRS) of non-infectious origin without acute organ dysfunction; F19.10 Other psychoactive substance abuse, uncomplicated; D72.829 Elevated white blood cell count, unspecified; Z79.4 Long term (current) use of insulin; Z83.3 Family history of diabetes mellitus
CPT/HCPCS: 36415; 71045; 80048; 80053; 81001; 82010; 82803; 82962; 83036; 83605; 83690; 83735; 84100; 85025; 93005; G0378; J1644; J1650; J1815; J2405; J2060; J3480; J7030; Q0177

== ENCOUNTER 2020-07-09 16:49 | Inpatient (IN) | payer MEDICAID ==
[~2020-07-09] VITALS: Ht 185.4 cm; Wt 106.5 kg
[~2020-07-09 16:49] MED LIST changes: -ASPI-515 PO; +ASPI-963 PO; -FOLI-17 PO; +FOLI1TAB32 PO
--- NOTE | 2020-07-09 17:29 | NUR ---
40 YO M STATING HE RAN OUT OF HOME SZ MEDS & HAS BEEN "DRINKING ALCOHOL INSTEAD".FS AT HOME 571 ; FSBS 463 UPON ARRIVAL FREQUENT SEIZURES X TWO DAYS. +N/V/EPIGASTRIC ABD PAIN X TEN DAYS. DR. MARX AT BEDSIDE FOR EVALUATION. PT HOOKED UP TO ALL MONITORS VSS. NADN. WILL CONTINUE TO MONITOR.
[2020-07-09] MEDS ORDERED: SODIUM CHLORIDE 0.9% 1,000ML IVBOLUS ONE (17:30)
[2020-07-09] MEDS ORDERED: ONDANSETRON 2MG/ML, 2ML IVPush ONE (17:30)
[2020-07-09] MEDS ORDERED: SODIUM CHLORIDE FLUSH 10ML SYR IVF ONE (17:30)
[2020-07-09] MEDS ORDERED: SODIUM CHLORIDE 0.9% 1,000 ML IV ONE (17:30)
[2020-07-09 17:36] LABS: BASOPHILS % (AUTO) 1 % (0-1); EOSINOPHILS % (AUTO) 1 % (1-7); LYMPHOCYTES % (AUTO) 30 % (22-44); MEAN CORPUSCULAR HEMOGLOBIN 30.9 pg (27.5-34.5); MEAN CORPUSCULAR HGB CONC 34.9 g/dL (33.2-36.2); MEAN PLATELET VOLUME 7.2 fL (7.4-10.4); MONOCYTES % (AUTO) 11 % (2-9); NEUTROPHILS % (AUTO) 58 % (42-75); PLATELET COUNT 170 x10^3/uL (130-400); RED BLOOD COUNT 4.93 x10^6/uL (4.38-5.82); RED CELL DISTRIBUTION WIDTH 14.3 % (9.4-14.8)
[2020-07-09 17:40] LABS: MD NO
[2020-07-09] MEDS ORDERED: ONDANSETRON 2MG/ML, 2ML ONE (17:44)
[2020-07-09 17:48] LABS: ALANINE AMINOTRANSFERASE 183 U/L (12-78); ALBUMIN 4.1 g/dL (3.4-5.0); ANION GAP 15 mmol/L (5-15); CALCIUM 8.7 mg/dL (8.5-10.1); CHLORIDE 93 mmol/L (98-107); CREATININE 0.96 mg/dL (0.7-1.3)
[2020-07-09 17:53] LABS: ALKALINE PHOSPHATASE 95 U/L (45-117); BILIRUBIN,TOTAL 0.5 mg/dL (0.2-1.0); TOTAL PROTEIN 8.1 g/dL (6.4-8.2)
[2020-07-09 18:08] LABS: MICROSCOPIC NOT IND
[2020-07-09 18:17] LABS: AMPHETAMINE SCREEN, URINE Negative (Negative); BARBITURATE SCREEN, URINE Negative (Negative); BENZODIAZEPINE SCREEN, URINE Negative (Negative); CANNABINOID SCREEN, URINE Negative (Negative); COCAINE SCREEN, URINE Negative (Negative); METHADONE SCREEN, URINE Negative (Negative); OPIATE SCREEN, URINE Negative (Negative)
[2020-07-09 18:26] LABS: ACETONE, SERUM Trace (Negative)
[2020-07-09] MEDS ORDERED: SODIUM CHLORIDE FLUSH 10ML SYR IVF PRN (18:30)
[2020-07-09] MEDS: SODIUM CHLORIDE 0.9% 1,000 ML IV ONE ×2 (18:30→18:33)
--- NOTE | 2020-07-09 18:57 | NUR ---
REPORT GIVEN TO HERMILO LAKHANI.
--- NOTE | 2020-07-09 19:23 | NUR ---
patient being transferred to floor with NS infusing at 250ml/hr continuous
[2020-07-09 19:45] VITALS: BP 123/83
[2020-07-09] MEDS ORDERED: FOLIC ACID 1 MG TABLET PO ONE (20:30)
[2020-07-09] MEDS ORDERED: DOCUSATE 100 MG CAPSULE PO PRN (20:30)
[2020-07-09] MEDS ORDERED: ALUMINUM/MAG/SIMETHICONE 30 ML UDC PO PRN (20:30)
[2020-07-09] MEDS ORDERED: LORazepam 2 MG/ML, 1ML IV PRN ×4 (20:30)
[2020-07-09] MEDS ORDERED: PROMETHAZINE 25 MG/ML, 1ML IM PRN (20:30)
[2020-07-09] MEDS: CHLORDIAZEPOXIDE 25 MG CAPSULE PO SCH (21:10)
[2020-07-09] MEDS: ENOXAPARIN 40 MG/0.4 ML SQ SCH (21:11)
[2020-07-09] MEDS: INSULIN REGULAR 100 UNITS/ML, 3ML VIAL SQ-INSULIN SCH (21:12)
[2020-07-09] MEDS ORDERED: PREG75CA PO (21:19)
[2020-07-09] MEDS ORDERED: ATOR-2 PO (21:19)
[2020-07-09] MEDS: LORazepam 2 MG/ML, 1ML IV PRN (22:13)
[2020-07-10 02:14] VITALS: BP 101/67
[2020-07-10] MEDS: CHLORDIAZEPOXIDE 25 MG CAPSULE PO SCH ×4 (02:19→20:48)
[2020-07-10] MEDS: LORazepam 2 MG/ML, 1ML IV PRN (04:31)
[2020-07-10 05:42] LABS: BASOPHILS % (AUTO) 1 % (0-1); EOSINOPHILS % (AUTO) 2 % (1-7); LYMPHOCYTES % (AUTO) 39 % (22-44); MEAN CORPUSCULAR HEMOGLOBIN 30.7 pg (27.5-34.5); MEAN CORPUSCULAR HGB CONC 34.3 g/dL (33.2-36.2); MEAN PLATELET VOLUME 7.2 fL (7.4-10.4); MONOCYTES % (AUTO) 12 % (2-9); NEUTROPHILS % (AUTO) 46 % (42-75); PLATELET COUNT 156 x10^3/uL (130-400); RED BLOOD COUNT 4.57 x10^6/uL (4.38-5.82)
[2020-07-10 05:51] LABS: MD NO
[2020-07-10 05:58] LABS: ALANINE AMINOTRANSFERASE 152 U/L (12-78); ALBUMIN 3.7 g/dL (3.4-5.0); ANION GAP 7 mmol/L (5-15); CALCIUM 8.5 mg/dL (8.5-10.1); CHLORIDE 101 mmol/L (98-107); CREATININE 0.65 mg/dL (0.7-1.3)
[2020-07-10 06:01] LABS: ALKALINE PHOSPHATASE 75 U/L (45-117); BILIRUBIN,TOTAL 0.9 mg/dL (0.2-1.0); TOTAL PROTEIN 7.3 g/dL (6.4-8.2)
[2020-07-10 07:56] VITALS: BP 107/72
[2020-07-10] MEDS: INSULIN REGULAR 100 UNITS/ML, 3ML VIAL SQ-INSULIN SCH ×4 (08:18→21:11)
[2020-07-10] MEDS: POTASSIUM CHLORIDE 20 MEQ, MAGNESIUM SULFATE 1 GM, THIAMINE 200 MG, FOLIC ACID 1 MG in ... IV SCH (10:00)
[2020-07-10 13:17] VITALS: BP 104/70
[2020-07-10 19:16] VITALS: BP 108/74
[2020-07-10] MEDS: ENOXAPARIN 40 MG/0.4 ML SQ SCH (20:48)
[2020-07-11 01:01] VITALS: BP 111/71
[2020-07-11] MEDS: CHLORDIAZEPOXIDE 25 MG CAPSULE PO SCH ×2 (02:23→08:28)
[2020-07-11 05:19] LABS: BASOPHILS % (AUTO) 1 % (0-1); EOSINOPHILS % (AUTO) 3 % (1-7); LYMPHOCYTES % (AUTO) 32 % (22-44); MEAN CORPUSCULAR HEMOGLOBIN 30.6 pg (27.5-34.5); MEAN CORPUSCULAR HGB CONC 34.5 g/dL (33.2-36.2); MEAN PLATELET VOLUME 7.1 fL (7.4-10.4); MONOCYTES % (AUTO) 13 % (2-9); NEUTROPHILS % (AUTO) 51 % (42-75); PLATELET COUNT 136 x10^3/uL (130-400); RED BLOOD COUNT 4.61 x10^6/uL (4.38-5.82); RED CELL DISTRIBUTION WIDTH 14.4 % (9.4-14.8)
[2020-07-11 05:20] LABS: MD NO
[2020-07-11 05:32] LABS: ANION GAP 9 mmol/L (5-15); CALCIUM 8.4 mg/dL (8.5-10.1); CHLORIDE 102 mmol/L (98-107); CREATININE 0.65 mg/dL (0.7-1.3)
[2020-07-11 07:42] VITALS: BP 112/75
[2020-07-11] MEDS: INSULIN REGULAR 100 UNITS/ML, 3ML VIAL SQ-INSULIN SCH ×2 (08:28→11:22)
[2020-07-11] MEDS: POTASSIUM CHLORIDE 20 MEQ, MAGNESIUM SULFATE 1 GM, THIAMINE 200 MG, FOLIC ACID 1 MG in ... IV SCH (08:41)
[2020-07-11 13:10] VITALS: BP 104/69
== END 2020-07-11 14:46 | disposition left against medical advice (07) | DRG 53 ==
LOC: ED 17:33 → EDIP 18:18 → 4WST 19:28
PROVIDERS: ADMIT Internal Medicine; ATTEND Family Medicine
DX: R56.9 Unspecified convulsions (principal); E10.40 Type 1 diabetes mellitus with diabetic neuropathy, unspecified; E10.65 Type 1 diabetes mellitus with hyperglycemia; E78.5 Hyperlipidemia, unspecified; F10.229 Alcohol dependence with intoxication, unspecified; F10.239 Alcohol dependence with withdrawal, unspecified; F17.200 Nicotine dependence, unspecified, uncomplicated; F20.9 Schizophrenia, unspecified; I10 Essential (primary) hypertension; Y90.9 Presence of alcohol in blood, level not specified; J45.909 Unspecified asthma, uncomplicated; F32.9 Major depressive disorder, single episode, unspecified; R74.8 Abnormal levels of other serum enzymes; R74.01 Elevation of levels of liver transaminase levels; Z88.8 Allergy status to other drugs, medicaments and biological substances
CPT/HCPCS: 36415; 71045; 80048; 80053; 80307; 80320; 81003; 82010; 82800; 82962; 83036; 83690; 83735; 83880; 84100; 85025; 87040; 93005; 96361; 96374; 99406; G0378; J1650; J1815; J2405; J3411; J3475; J3480; G0480; J2060; J7030

== ENCOUNTER 2020-07-23 11:20 | Emergency (ER) | payer MEDICAID ==
[~2020-07-23] VITALS: Ht 185.4 cm; Wt 104.5 kg
[~2020-07-23 11:20] MED LIST changes: +PREG75CA PO
--- NOTE | 2020-07-23 11:47 | NUR ---
DR. GUPTA TO BEDSIDE FOR EVALUATION. PT ATTACHED TO ALL MONITORS. VSS. PT ANXIOUS. PT W/ C/O SHAKING, SHARP STOMACH PAIN, STATES HIS "LIVER IS BURNING". PT STATES HE DRANK 1/4 OF VODKA THIS MORNING.
[2020-07-23] MEDS ORDERED: ONDANSETRON 2MG/ML, 2ML ONE (11:53)
[2020-07-23] MEDS: SODIUM CHLORIDE 0.9% 1,000ML IVBOLUS ONE (12:00)
[2020-07-23] MEDS ORDERED: ONDANSETRON 2MG/ML, 2ML IVPush ONE (12:00)
[2020-07-23] MEDS ORDERED: SODIUM CHLORIDE FLUSH 10ML SYR IVF ONE (12:00)
--- NOTE | 2020-07-23 12:07 | NUR ---
DURING IV INSERTION AND LAB DRAW PT BECAME AGIATED STATING THIS RN WAS BLEEDING HIM TO AND THAT HE LOST A PINT OF BLOOD DURING THE PROCESS. PT EDUCATED ON IV INSERSERTION AND LABS. PT REFUSING MEDICATION. PT STATING HE CAME HERE TO BE "WAITED ON, AND NOT TO BE INJURED". LABS COLLECTED IV STARTED. PT REQUESTING NEW RN.
--- NOTE | 2020-07-23 12:11 | NUR ---
PT REFUSING ZOFRISAIAS AND NS STATING "IT MAKES ME PISS MYSELF." PT EDUCATED ON MEDICATION.
--- NOTE | 2020-07-23 12:19 | NUR ---
Preceptor RN: This RN to bedside to assess if pt wants ordred intervetions or if he is wishing to leave AMA. Pt continually states "I want help. I didn't come here to be stabbed and hurt, I want help. I know people here." Pt educated about the assessment and orders the doctor has put in and that this is the help he is receiving at this time. Pt given choice to receive this help or leave, pt decides to stay at this time.
--- NOTE | 2020-07-23 12:22 | NUR ---
COLBY RN TO BEDSIDE WITH SOURCING COORDINATOR. AFTER DISCUSSING POC AND EDUCATING PT, PT AGREEABLE TO CARE AND RECIEVING NS BOLUS. VSS. JAVIER.
--- NOTE | 2020-07-23 12:24 | NUR ---
Pt also educated about need for UA.
[2020-07-23 12:34] LABS: BASOPHILS % (AUTO) 2 % (0-1); EOSINOPHILS % (AUTO) 2 % (1-7); LYMPHOCYTES % (AUTO) 34 % (22-44); MEAN CORPUSCULAR HEMOGLOBIN 31.1 pg (27.5-34.5); MEAN CORPUSCULAR HGB CONC 34.4 g/dL (33.2-36.2); MEAN PLATELET VOLUME 7.1 fL (7.4-10.4); MONOCYTES % (AUTO) 9 % (2-9); NEUTROPHILS % (AUTO) 54 % (42-75); PLATELET COUNT 266 x10^3/uL (130-400); RED BLOOD COUNT 4.68 x10^6/uL (4.38-5.82); RED CELL DISTRIBUTION WIDTH 15.2 % (9.4-14.8)
[2020-07-23 12:39] LABS: MD NO
[2020-07-23 12:44] LABS: ALANINE AMINOTRANSFERASE 181 U/L (12-78); ALBUMIN 3.7 g/dL (3.4-5.0); ANION GAP 11 mmol/L (5-15); CALCIUM 8.2 mg/dL (8.5-10.1); CHLORIDE 96 mmol/L (98-107); CREATININE 0.86 mg/dL (0.7-1.3)
[2020-07-23 12:46] LABS: ALKALINE PHOSPHATASE 97 U/L (45-117); BILIRUBIN,TOTAL 0.7 mg/dL (0.2-1.0); TOTAL PROTEIN 7.5 g/dL (6.4-8.2)
[2020-07-23 13:19] LABS: MICROSCOPIC INDICATED
--- NOTE | 2020-07-23 13:19 | NUR ---
pt ripped out iv and took off all monitors. this rn attempted to place new iv and replace monitors. unable to start new iv. pt took monitors back off. md manzo
[2020-07-23 14:12] VITALS: BP 108/57
== END 2020-07-23 14:15 | disposition home or self-care (01) ==
LOC: ED 12:35
DX: F10.229 Alcohol dependence with intoxication, unspecified (principal); R00.0 Tachycardia, unspecified; R11.2 Nausea with vomiting, unspecified; R10.11 Right upper quadrant pain; I10 Essential (primary) hypertension; E11.9 Type 2 diabetes mellitus without complications; E78.5 Hyperlipidemia, unspecified; J45.909 Unspecified asthma, uncomplicated; Y90.0 Blood alcohol level of less than 20 mg/100 ml
CPT/HCPCS: 36415; 71045; 80053; 80320; 81001; 83690; 83735; 85025; 93005; 96360; 99285; J7030; G0480

== ENCOUNTER 2020-08-07 12:35 | Emergency (ER) | payer MEDICAID ==
[~2020-08-07] VITALS: Ht 185.4 cm; Wt 104.9 kg
--- NOTE | 2020-08-07 12:59 | NUR ---
PT STATES HE CANNOT STOP DRINKING VODKA. DRINKS 1/5 OF VODKA A DAY. REPORTS LAST DRINK WAS 8 HOURS AGO. REPORTS S/S OF AUDITORY AND VISUAL HALLUCINATIONS. DRINKS TO GET HALLUCINATIONS TO GO AWAY. DOES NOT WANT TO TAKE HIS CLONAZEPAM AND HYDROXYZINE DUE TO ALCOHOL PROBLEM.
[2020-08-07 13:03] VITALS: BP 123/84
--- NOTE | 2020-08-07 13:08 | NUR ---
SEIZURE PRECAUTIONS INITATED DUE TO PT STATING HX OF SEIZURES.
[2020-08-07] MEDS ORDERED: MAGNESIUM SULFATE 1 GM, THIAMINE 100 MG, FOLIC ACID 1 MG, MVI ADULT 10 ML in SODIUM CHL... IV ONE (13:30)
[2020-08-07] MEDS ORDERED: SODIUM CHLORIDE FLUSH 10ML SYR IVF ONE (13:30)
[2020-08-07] MEDS ORDERED: ONDANSETRON 2MG/ML, 2ML IVPush ONE (13:30)
[2020-08-07] MEDS ORDERED: SODIUM CHLORIDE 0.9% 1,000 ML IV ONE (13:30)
[2020-08-07] MEDS ORDERED: LORazepam 2 MG/ML, 1ML IVPush PRN (13:30)
--- NOTE | 2020-08-07 13:33 | NUR ---
AT 1320 PT WAS SEEN LEAVING AMA. REINFORCED BENEFITS OF STAYING AND BEING TREATED. MD MORALEZ SAW PATEINT AND INFORMED HIM ON PLAN OF CARE AND REASONS TO STAY IN HOSPITAL AND BE TREATED. PT STILL REFUSED. TOLD PT HE ALWAYS HAS THE OPTION TO RETURN FOR CARE.
== END 2020-08-07 13:49 | disposition left against medical advice (07) ==
LOC: ED 13:46
DX: F10.139 Alcohol abuse with withdrawal, unspecified (principal); R11.2 Nausea with vomiting, unspecified; R19.7 Diarrhea, unspecified; I10 Essential (primary) hypertension; E11.65 Type 2 diabetes mellitus with hyperglycemia; J45.909 Unspecified asthma, uncomplicated; Y90.0 Blood alcohol level of less than 20 mg/100 ml
CPT/HCPCS: 93005; 99283

== ENCOUNTER 2020-08-07 17:56 | Emergency (ER) | payer MEDICAID ==
[~2020-08-07] VITALS: Ht 185.4 cm; Wt 110.0 kg
[2020-08-07 18:44] VITALS: BP 119/74
--- NOTE | 2020-08-07 19:08 | NUR ---
CC OF "I DRANK TOO MUCH VODKA AND HAVEN'T EATEN IN LIKE 10 DAYS, MY BLOOD SUGAR IS LIKE 400".
--- NOTE | 2020-08-07 19:10 | NUR ---
PT ADMITS TO DRINKING FIFTH OF VODKA TODAY. NO TREMORS NOTED. PT RESTING IN GURNEY CALMLY.
== END 2020-08-07 19:37 | disposition home or self-care (01) ==
LOC: ED 19:15
DX: F10.20 Alcohol dependence, uncomplicated (principal); R11.2 Nausea with vomiting, unspecified; I10 Essential (primary) hypertension; E11.9 Type 2 diabetes mellitus without complications; J45.909 Unspecified asthma, uncomplicated; E11.65 Type 2 diabetes mellitus with hyperglycemia; Z87.891 Personal history of nicotine dependence; Y90.0 Blood alcohol level of less than 20 mg/100 ml
CPT/HCPCS: 82962; 99281; 99282